=== PATIENT | male | born 1950 | race Two or more races ===

== ENCOUNTER 2018-05-22 16:48 | Emergency (ER) | payer OTHER ==
[~2018-05-22] VITALS: Ht 177.8 cm; Wt 90.0 kg
[2018-05-22 17:25] LABS: BASOPHILS % (AUTO) 0.2 % (0-1); EOSINOPHILS # (AUTO) 0.1 X10'3 (0-0.9); EOSINOPHILS % (AUTO) 1.5 % (0-6); HEMATOCRIT 28.8 % (42.0-52.0); HEMOGLOBIN 9.8 g/dl (14.0-17.9); LYMPHOCYTES # (AUTO) 1.4 X10'3 (1.1-4.8); LYMPHOCYTES % (AUTO) 14.9 % (21-51); MEAN CORPUSCULAR HEMOGLOBIN 27.5 PG (27.0-31.0); MEAN PLATELET VOLUME 7.3 FL (7.4-10.4); MONOCYTES # (AUTO) 0.5 X10'3 (0-0.9); MONOCYTES % (AUTO) 5.6 % (2-12); NEUTROPHILS # (AUTO) 7.3 X10'3 (1.8-7.7); NEUTROPHILS % (AUTO) 77.8 % (42-75); PLATELET COUNT 350 X10'3 (140-440); RED BLOOD COUNT 3.55 X10'6 (4.70-6.10); RED CELL DISTRIBUTION WIDTH 13.8 % (11.5-14.5); WHITE BLOOD COUNT 9.4 X10'3 (4.5-11.0)
[2018-05-22 17:37] LABS: ALANINE AMINOTRANSFERASE 26 U/L (12-78); ALBUMIN 3.6 G/DL (3.4-5.0); ALBUMIN/GLOBULIN RATIO 1.1 (1.1-1.5); ALKALINE PHOSPHATASE 91 IU/L (46-116); ANION GAP 12 (8-16); ASPARTATE AMINO TRANSFERASE 19 U/L (10-37); BILIRUBIN,TOTAL 0.4 MG/DL (0.1-1.0); BLOOD UREA NITROGEN 26 MG/DL (7-18); BUN/CREATININE RATIO 32.9 (5.4-32.0); CALCIUM 8.7 MG/DL (8.5-10.1); CHLORIDE 105 MMOL/L (99-107); CREATININE 0.79 MG/DL (0.60-1.10); GLUCOSE 116 MG/DL (70-104); POTASSIUM 3.9 MMOL/L (3.5-5.1); SODIUM 144 MMOL/L (135-145); eGFR > 90 ML/MIN
[2018-05-22 18:25] VITALS: BP 142/57
[2018-05-22 18:27] LABS: COLOR,URINE YELLOW (Yellow); GLUCOSE, URINE NEGATIVE (Neg); KETONES,URINE TRACE mg/dl (Neg); LEUKOCYTE ESTERASE ,URINE NEGATIVE (Neg); NITRITES, URINE NEGATIVE (Neg); OCCULT BLOOD,URINE SMALL (Neg); PH,URINE 5.5 (4.8-8.0); PROTEIN,URINE TRACE mg/dl (Neg); UROBILINOGEN,URINE 0.2 E.U/dL (0.2-1.0)
[2018-05-22 18:45] LABS: UA COLLECTION TYPE CLN CATCH MIDSTREAM
[2018-05-22 18:46] LABS: CLARITY,URINE SLIGHTLY CLOUDY (Clear); WBC,URINE 0-4 /HPF (0-4)
[2018-05-22 18:47] LABS: BACTERIA,URINE NONE SEEN /HPF (Neg); CAL OXALATE CRYSTALS 3+ /HPF (NEGATIVE); RBC,URINE 0-2 /HPF (0-2); SQUAMOUS EPITHELIAL CELL,UR FEW /LPF (FEW)
== END 2018-05-22 18:26 | disposition home or self-care (01) ==
LOC: ER 16:49
DX: R60.9 Edema, unspecified (principal); I50.9 Heart failure, unspecified
CPT/HCPCS: 36415; 71045; 80053; 81001; 83880; 85025; 93005; 99285

== ENCOUNTER 2018-06-15 16:18 | Emergency (ER) | payer MEDICARE, OTHER ==
[~2018-06-15] VITALS: Ht 604 cm; Wt 97.5 kg
[2018-06-15 18:29] LABS: BASOPHILS % (AUTO) 0.1 % (0-1); EOSINOPHILS # (AUTO) 0.2 X10'3 (0-0.9); EOSINOPHILS % (AUTO) 2.1 % (0-6); HEMATOCRIT 24.8 % (42.0-52.0); HEMOGLOBIN 8.2 g/dl (14.0-17.9); LYMPHOCYTES # (AUTO) 1.6 X10'3 (1.1-4.8); LYMPHOCYTES % (AUTO) 15.8 % (21-51); MEAN CORPUSCULAR HEMOGLOBIN 25.3 PG (27.0-31.0); MEAN CORPUSCULAR VOLUME 76.9 FL (78-98); MEAN PLATELET VOLUME 6.6 FL (7.4-10.4); MONOCYTES % (AUTO) 10.2 % (2-12); NEUTROPHILS # (AUTO) 7.2 X10'3 (1.8-7.7); NEUTROPHILS % (AUTO) 71.8 % (42-75); PLATELET COUNT 281 X10'3 (140-440); RED BLOOD COUNT 3.23 X10'6 (4.70-6.10); RED CELL DISTRIBUTION WIDTH 15.1 % (11.5-14.5); WHITE BLOOD COUNT 10.1 X10'3 (4.5-11.0)
[2018-06-15 18:41] LABS: INR 1.2 INR; PARTIAL THROMBOPLASTIN TIME 25 SECONDS (22-32); PROTHROMBIN TIME 12.6 SECONDS (9.0-12.0)
[2018-06-15 18:45] LABS: ALANINE AMINOTRANSFERASE 42 U/L (12-78); ALBUMIN 3.3 G/DL (3.4-5.0); ALBUMIN/GLOBULIN RATIO 1.1 (1.1-1.5); ALKALINE PHOSPHATASE 78 IU/L (46-116); ANION GAP 8 (8-16); ASPARTATE AMINO TRANSFERASE 23 U/L (10-37); BILIRUBIN,TOTAL 0.6 MG/DL (0.1-1.0); BLOOD UREA NITROGEN 26 MG/DL (7-18); BUN/CREATININE RATIO 23.6 (5.4-32.0); CALCIUM 8.1 MG/DL (8.5-10.1); CHLORIDE 102 MMOL/L (99-107); GLUCOSE 174 MG/DL (70-104); POTASSIUM 3.3 MMOL/L (3.5-5.1); SODIUM 138 MMOL/L (135-145); TOTAL CARBON DIOXIDE 27.8 MMOL/L (24-32); TOTAL PROTEIN 6.3 G/DL (6.4-8.2); eGFR 66 ML/MIN
[2018-06-15 18:51] LABS: MAGNESIUM 1.6 MG/DL (1.5-2.4)
[2018-06-15 19:31] LABS: CLARITY,URINE CLEAR (Clear); COLOR,URINE YELLOW (Yellow); GLUCOSE, URINE NEGATIVE (Neg); KETONES,URINE NEGATIVE (Neg); LEUKOCYTE ESTERASE ,URINE NEGATIVE (Neg); NITRITES, URINE NEGATIVE (Neg); OCCULT BLOOD,URINE NEGATIVE (Neg); PROTEIN,URINE TRACE mg/dl (Neg); UA COLLECTION TYPE VOIDED
[2018-06-15 19:49] LABS: BACTERIA,URINE NONE SEEN /HPF (Neg); HYALINE CASTS 0-3 /LPF (NEGATIVE); MUCUS STRANDS NONE SEEN /LPF (Neg); RBC,URINE NONE SEEN /HPF (0-2); SQUAMOUS EPITHELIAL CELL,UR FEW /LPF (FEW); WBC,URINE 0-4 /HPF (0-4)
[2018-06-15] MEDS ORDERED: furosemide 20MG tablet PO ONE (20:05)
[2018-06-15] MEDS ORDERED: FURO-150 PO (20:05)
[2018-06-15] MEDS ORDERED: POTA10TA36 PO (20:06)
[2018-06-15 20:23] VITALS: BP 171/72
== END 2018-06-15 20:25 | disposition home or self-care (01) ==
LOC: ER 16:19
DX: I11.0 Hypertensive heart disease with heart failure (principal); I50.30 Unspecified diastolic (congestive) heart failure; I38 Endocarditis, valve unspecified; D64.9 Anemia, unspecified; E78.00 Pure hypercholesterolemia, unspecified; K21.9 Gastro-esophageal reflux disease without esophagitis; E11.9 Type 2 diabetes mellitus without complications; Z95.1 Presence of aortocoronary bypass graft; Z79.899 Other long term (current) drug therapy
CPT/HCPCS: 36415; 71045; 80053; 81001; 83735; 83880; 84484; 85025; 85610; 85730; 93005; 99285

== ENCOUNTER 2018-10-01 16:33 | Inpatient (IN) | payer MEDICARE, OTHER ==
[~2018-10-01] VITALS: Ht 177.8 cm; Wt 93.0 kg
[~2018-10-01 16:33] MED LIST: FURO-150 PO; POTA10TA36 PO
[2018-10-01 17:17] LABS: BASOPHILS # (AUTO) 0.1 X10'3 (0-0.2); BASOPHILS % (AUTO) 0.5 % (0-1); EOSINOPHILS # (AUTO) 0.4 X10'3 (0-0.9); EOSINOPHILS % (AUTO) 3.6 % (0-6); HEMATOCRIT 29.4 % (42.0-52.0); HEMOGLOBIN 9.1 g/dl (14.0-17.9); LYMPHOCYTES # (AUTO) 1.7 X10'3 (1.1-4.8); LYMPHOCYTES % (AUTO) 16.6 % (21-51); MEAN CORPUSCULAR HEMOGLOBIN 21.1 PG (27.0-31.0); MEAN CORPUSCULAR HGB CONC 31.1 % (33.0-36.5); MONOCYTES # (AUTO) 0.6 X10'3 (0-0.9); MONOCYTES % (AUTO) 6.3 % (2-12); NEUTROPHILS # (AUTO) 7.4 X10'3 (1.8-7.7); PLATELET COUNT 484 X10'3 (140-440); RED BLOOD COUNT 4.32 X10'6 (4.70-6.10); RED CELL DISTRIBUTION WIDTH 18.3 % (11.5-14.5); WHITE BLOOD COUNT 10.2 X10'3 (4.5-11.0)
[2018-10-01 17:33] LABS: ANISOCYTOSIS 2+; PLATELET ESTIMATE INCREASED; POIKILOCYTOSIS 2+
[2018-10-01 17:36] LABS: ACANTHOCYTES 1+; ELLIPTOCYTES 2+
[2018-10-01 17:37] LABS: POLYCHROMASIA 1+
[2018-10-01 17:39] LABS: ALANINE AMINOTRANSFERASE 46 U/L (12-78); ALBUMIN 4.1 G/DL (3.4-5.0); ALBUMIN/GLOBULIN RATIO 1.1 (1.1-1.5); ALKALINE PHOSPHATASE 108 IU/L (46-116); ANION GAP 10 (8-16); ASPARTATE AMINO TRANSFERASE 26 U/L (10-37); BILIRUBIN,TOTAL 0.3 MG/DL (0.1-1.0); BLOOD UREA NITROGEN 33 MG/DL (7-18); BUN/CREATININE RATIO 35.1 (5.4-32.0); CALCIUM 9.4 MG/DL (8.5-10.1); CHLORIDE 103 MMOL/L (99-107); CREATININE 0.94 MG/DL (0.60-1.10); GLUCOSE 93 MG/DL (70-104); POTASSIUM 3.7 MMOL/L (3.5-5.1); SODIUM 139 MMOL/L (135-145); TOTAL CARBON DIOXIDE 26.4 MMOL/L (24-32); TOTAL PROTEIN 7.7 G/DL (6.4-8.2); eGFR 80 ML/MIN
[2018-10-01 17:43] LABS: INR 1.1 INR; PARTIAL THROMBOPLASTIN TIME 25 SECONDS (22-32); PROTHROMBIN TIME 10.7 SECONDS (9.0-12.0)
[2018-10-01 18:02] LABS: HYPOCHROMASIA 1+
[2018-10-01 18:03] LABS: TEAR DROP CELLS FEW
[2018-10-01] MEDS ORDERED: normal saline 1000ML IV soln IVB ONE (18:50)
[2018-10-01] MEDS ORDERED: aspirin 81mg tab.chew PO ONE (19:00)
[2018-10-01] MEDS ORDERED: nitroGLYCERIN 0.4mg SUBLingual tab SL PRN (19:00)
[2018-10-01] MEDS ORDERED: FLUO20CA39 PO (20:43)
[2018-10-01] MEDS ORDERED: METF500T PO (20:59)
[2018-10-01] MEDS ORDERED: LISI40TA4 PO (20:59)
[2018-10-01] MEDS ORDERED: CARV25TA3 (20:59)
[2018-10-01] MEDS ORDERED: ATOR40TA PO (20:59)
[2018-10-01] MEDS ORDERED: FEXO180T94 PO (20:59)
[2018-10-01] MEDS ORDERED: OMEP20CA10 PO (20:59)
[2018-10-01] MEDS ORDERED: ASPI-920 PO (20:59)
[2018-10-01] MEDS ORDERED: AMLO5TAB PO (20:59)
[2018-10-01] MEDS ORDERED: HYDR12.55 PO (20:59)
[2018-10-01] MEDS ORDERED: temazepam 15mg capsule PO PRN (21:00)
[2018-10-01] MEDS ORDERED: acetaminophen 650mg rectal suppository RC PRN (21:50)
[2018-10-01] MEDS ORDERED: morphine 2 MG/ML inj. syringe IV PRN (21:50)
[2018-10-01] MEDS ORDERED: mag hydrox/Alum hydrox/simeth 30ml oral suspension PO PRN (21:50)
[2018-10-01] MEDS ORDERED: acetaminophen 325mg tablet PO PRN ×2 (21:50)
[2018-10-01] MEDS ORDERED: diphenhydrAMINE 50 mg/ml inj IV PRN (21:50)
[2018-10-01] MEDS ORDERED: diphenhydrAMINE 25mg capsule PO PRN (21:50)
[2018-10-01] MEDS ORDERED: HYDROmorphone 1 mg/ml syringe IV PRN (21:50)
[2018-10-01] MEDS ORDERED: magnesium hydroxide 30ml (MOM) UD suspension PO PRN (21:50)
[2018-10-01] MEDS ORDERED: HYDROcodone/acetaminophen 10/325mg tab PO PRN (21:50)
[2018-10-01] MEDS ORDERED: bisacodyl 10mg suppository rectal RC PRN (21:50)
[2018-10-01] MEDS ORDERED: metoclopramide 5 mg/ml inj IV PRN (21:50)
[2018-10-01] MEDS ORDERED: glucagon, human recombinant 1mg kit SUBCUT PRN (21:55)
[2018-10-01] MEDS ORDERED: MESSAGE TO PHARMACY PO ONE (21:55)
[2018-10-01] MEDS ORDERED: dextrose ORAL solution 15 GM/59 ML bottle PO PRN ×2 (21:55)
[2018-10-01] MEDS ORDERED: dextrose 50%-water 50ml dispensing syringe IV PRN ×2 (21:55)
[2018-10-01 22:15] LABS: HEMOGLOBIN A1C 7.1 % (4.5-6.2)
[2018-10-01 22:21] LABS: MAGNESIUM 1.7 MG/DL (1.5-2.4); PHOSPHORUS 3.5 MG/DL (2.3-4.5)
[2018-10-01] MEDS: normal saline 1000ml 1,000 ML IV SCH (22:37)
[2018-10-01] MEDS ORDERED: LANTUS SQ (23:01)
[2018-10-01] MEDS ORDERED: INSU100C4 SQ (23:01)
[2018-10-01 23:40] VITALS: BP 130/74
[2018-10-01] MEDS ORDERED: heparin 10,000 units/1 ML INJ IV ONE (23:45)
[2018-10-01] MEDS ORDERED: heparin 10,000 units/1 ML INJ IV PRN (23:45)
[2018-10-02] MEDS ORDERED: heparin, porcine 5000 units/ml vial SQ SCH
[2018-10-02 00:38] LABS: BASOPHILS % (AUTO) 0.4 % (0-1); EOSINOPHILS # (AUTO) 0.2 X10'3 (0-0.9); EOSINOPHILS % (AUTO) 1.6 % (0-6); HEMATOCRIT 28.1 % (42.0-52.0); HEMOGLOBIN 9.4 g/dl (14.0-17.9); LYMPHOCYTES # (AUTO) 1.7 X10'3 (1.1-4.8); LYMPHOCYTES % (AUTO) 15.9 % (21-51); MEAN CORPUSCULAR HEMOGLOBIN 22.9 PG (27.0-31.0); MEAN CORPUSCULAR HGB CONC 33.4 % (33.0-36.5); MEAN CORPUSCULAR VOLUME 68.5 FL (78-98); MEAN PLATELET VOLUME 7.2 FL (7.4-10.4); MONOCYTES # (AUTO) 0.7 X10'3 (0-0.9); MONOCYTES % (AUTO) 6.1 % (2-12); NEUTROPHILS # (AUTO) 8.3 X10'3 (1.8-7.7); PLATELET COUNT 409 X10'3 (140-440); RED CELL DISTRIBUTION WIDTH 16.6 % (11.5-14.5); WHITE BLOOD COUNT 10.9 X10'3 (4.5-11.0)
[2018-10-02 00:59] LABS: LARGE PLATELETS FEW; PLATELET ESTIMATE NORMAL
[2018-10-02 01:00] LABS: ANISOCYTOSIS 1+; ELLIPTOCYTES 2+; MICROCYTOSIS 1+; POIKILOCYTOSIS 3+
[2018-10-02 01:01] LABS: INR 1.1 INR; PARTIAL THROMBOPLASTIN TIME 28 SECONDS (22-32); PROTHROMBIN TIME 10.8 SECONDS (9.0-12.0)
[2018-10-02] MEDS: heparin 25,000 UNIT/250ml bag 250 ML IV SCH ×3 (01:29→22:18)
[2018-10-02 05:42] LABS: BASOPHILS % (AUTO) 0.2 % (0-1); EOSINOPHILS # (AUTO) 0.3 X10'3 (0-0.9); EOSINOPHILS % (AUTO) 2.7 % (0-6); HEMOGLOBIN 9.3 g/dl (14.0-17.9); LYMPHOCYTES % (AUTO) 19.9 % (21-51); MEAN CORPUSCULAR HEMOGLOBIN 21.1 PG (27.0-31.0); MEAN PLATELET VOLUME 7.7 FL (7.4-10.4); MONOCYTES # (AUTO) 0.7 X10'3 (0-0.9); NEUTROPHILS # (AUTO) 7.2 X10'3 (1.8-7.7); NEUTROPHILS % (AUTO) 70.2 % (42-75); PLATELET COUNT 453 X10'3 (140-440); RED BLOOD COUNT 4.41 X10'6 (4.70-6.10); RED CELL DISTRIBUTION WIDTH 18.1 % (11.5-14.5); WHITE BLOOD COUNT 10.3 X10'3 (4.5-11.0)
[2018-10-02 05:54] LABS: ALANINE AMINOTRANSFERASE 41 U/L (12-78); ALBUMIN 3.8 G/DL (3.4-5.0); ALBUMIN/GLOBULIN RATIO 1.1 (1.1-1.5); ALKALINE PHOSPHATASE 100 IU/L (46-116); ANION GAP 11 (8-16); ASPARTATE AMINO TRANSFERASE 29 U/L (10-37); BILIRUBIN,TOTAL 0.5 MG/DL (0.1-1.0); BLOOD UREA NITROGEN 23 MG/DL (7-18); BUN/CREATININE RATIO 31.9 (5.4-32.0); CALCIUM 9.1 MG/DL (8.5-10.1); CHLORIDE 102 MMOL/L (99-107); CREATININE 0.72 MG/DL (0.60-1.10); GLUCOSE 100 MG/DL (70-104); POTASSIUM 3.3 MMOL/L (3.5-5.1); SODIUM 139 MMOL/L (135-145); TOTAL CARBON DIOXIDE 25.6 MMOL/L (24-32); TOTAL PROTEIN 7.3 G/DL (6.4-8.2); eGFR > 90 ML/MIN
[2018-10-02 05:57] LABS: CHOL/HDL RATIO 3.9 (0.00-4.99); CHOLESTEROL 136 MG/DL (0-200); HDL CHOLESTEROL 35 MG/DL (35-60); LDL CHOLESTEROL 85 MG/DL (50-100); TRIGLYCERIDES 69 MG/DL (20-135)
[2018-10-02 06:18] LABS: ANISOCYTOSIS 2+; MICROCYTOSIS 2+; PLATELET ESTIMATE INCREASED; POIKILOCYTOSIS 2+
[2018-10-02 06:19] LABS: ELLIPTOCYTES 2+; SCHISTOCYTES 1+
[2018-10-02 06:20] LABS: BURR CELLS 1+
[2018-10-02 07:00] VITALS: BP 127/64
[2018-10-02] MEDS: pantoprazole 40mg Tablet.DR PO SCH (07:33)
[2018-10-02] MEDS: cetirizine 10mg tablet PO SCH (07:33)
[2018-10-02] MEDS: docusate sod 100mg capsule PO SCH ×2 (07:33→20:50)
[2018-10-02] MEDS: atorvastatin 20mg tablet PO SCH (07:33)
[2018-10-02] MEDS: aspirin 81mg tab.chew PO SCH (07:33)
[2018-10-02] MEDS: lisinopril 20mg tablet PO SCH (07:34)
[2018-10-02] MEDS: nitroGLYCERIN 0.2mg/hour patch TD SCH (07:34)
[2018-10-02] MEDS: FLUoxetine 20mg capsule PO SCH (07:34)
[2018-10-02] MEDS ORDERED: amLODIPine 5mg tablet PO SCH (08:00)
[2018-10-02 11:17] VITALS: BP 100/64
[2018-10-02] MEDS: ondansetron/PF 4mg/2ml inj IV PRN (11:27)
[2018-10-02 12:00] VITALS: BP 133/72
[2018-10-02] MEDS ORDERED: LORazepam 0.5 MG tablet PO PRN (12:00)
[2018-10-02] MEDS ORDERED: LORazepam 2 mg/ml vial IV ONE ×2 (12:00→12:05)
[2018-10-02] MEDS ORDERED: LORazepam 1 MG tablet PO PRN (12:05)
[2018-10-02] MEDS: insulin Lispro (HumaLOG) vial - multi-dose SQ SCH (13:27)
[2018-10-02] MEDS ORDERED: magnesium Cl slow-release 64mg tablet PO PRN (16:40)
[2018-10-02] MEDS ORDERED: magnesium 4gm in 100ml NS 100 ML IV PRN (16:40)
[2018-10-02] MEDS ORDERED: potassium Cl 20 mEq SR tablet PO PRN (16:40)
[2018-10-02] MEDS ORDERED: potassium Cl 40MEQ/NS 500ml 500 ML IV PRN ×2 (16:40)
[2018-10-02] MEDS: potassium Cl 20 mEq SR tablet PO PRN (18:20)
[2018-10-02 20:00] VITALS: BP 125/65
[2018-10-02] MEDS: sodium bicarbonate (8.4%) inj. 150 MEQ in sodium chloride 0.45% 1,000 ML IV SCH (21:05)
[2018-10-02] MEDS: acetylcysteine 200 MG/ml 4ml vial PO SCH (21:13)
[2018-10-03] VITALS (11 sets, daily range): BP systolic 118–152; BP diastolic 56–84
[2018-10-03 05:55] LABS: BASOPHILS % (AUTO) 0.5 % (0-1); EOSINOPHILS # (AUTO) 0.2 X10'3 (0-0.9); EOSINOPHILS % (AUTO) 2.7 % (0-6); HEMATOCRIT 26.7 % (42.0-52.0); HEMOGLOBIN 8.4 g/dl (14.0-17.9); LYMPHOCYTES # (AUTO) 1.7 X10'3 (1.1-4.8); LYMPHOCYTES % (AUTO) 22.1 % (21-51); MEAN CORPUSCULAR HEMOGLOBIN 21.2 PG (27.0-31.0); MEAN CORPUSCULAR HGB CONC 31.4 % (33.0-36.5); MEAN CORPUSCULAR VOLUME 67.7 FL (78-98); MONOCYTES # (AUTO) 0.7 X10'3 (0-0.9); MONOCYTES % (AUTO) 9.6 % (2-12); NEUTROPHILS # (AUTO) 4.9 X10'3 (1.8-7.7); NEUTROPHILS % (AUTO) 65.1 % (42-75); PLATELET COUNT 420 X10'3 (140-440); RED BLOOD COUNT 3.94 X10'6 (4.70-6.10); WHITE BLOOD COUNT 7.6 X10'3 (4.5-11.0)
[2018-10-03] MEDS: sodium bicarbonate (8.4%) inj. 150 MEQ in sodium chloride 0.45% 1,000 ML IV SCH ×2 (06:03→20:58)
[2018-10-03 06:21] LABS: ALBUMIN 3.4 G/DL (3.4-5.0); ANION GAP 8 (8-16); BLOOD UREA NITROGEN 18 MG/DL (7-18); BUN/CREATININE RATIO 23.4 (5.4-32.0); CALCIUM 8.7 MG/DL (8.5-10.1); CHLORIDE 105 MMOL/L (99-107); CREATININE 0.77 MG/DL (0.60-1.10); GLUCOSE 135 MG/DL (70-104); POTASSIUM 3.3 MMOL/L (3.5-5.1); SODIUM 142 MMOL/L (135-145); TOTAL CARBON DIOXIDE 28.7 MMOL/L (24-32); TROPONIN I 0.51 NG/ML (0.0-0.05); eGFR > 90 ML/MIN
[2018-10-03 06:26] LABS: ANISOCYTOSIS 2+; ELLIPTOCYTES 1+; HYPOCHROMASIA 1+; MICROCYTOSIS 2+; PLATELET ESTIMATE NORMAL
[2018-10-03 06:27] LABS: ACANTHOCYTES FEW
[2018-10-03] MEDS: pantoprazole 40mg Tablet.DR PO SCH ×2 (09:22→09:42)
[2018-10-03] MEDS: atorvastatin 20mg tablet PO SCH (09:23)
[2018-10-03] MEDS: FLUoxetine 20mg capsule PO SCH (09:23)
[2018-10-03] MEDS: lisinopril 20mg tablet PO SCH (09:24)
[2018-10-03] MEDS: aspirin 81mg tab.chew PO SCH (09:24)
[2018-10-03] MEDS: cetirizine 10mg tablet PO SCH (09:24)
[2018-10-03] MEDS: docusate sod 100mg capsule PO SCH ×2 (09:25→20:57)
[2018-10-03] MEDS: acetylcysteine 200 MG/ml 4ml vial PO SCH ×2 (09:26→20:58)
[2018-10-03] MEDS: nitroGLYCERIN 0.2mg/hour patch TD SCH (10:12)
[2018-10-03] MEDS: insulin Lispro (HumaLOG) vial - multi-dose SQ SCH ×2 (11:08→19:31)
[2018-10-03] MEDS ORDERED: heparin 1,000unit/ml 10ml vial 10 ML ONE (13:35)
[2018-10-03] MEDS ORDERED: nitroGLYCERIN-Tridil 50MG/D5W 250 ML IV ONE (13:35)
[2018-10-03] MEDS ORDERED: fentaNYL/PF 50MCG/1 ML 2ML syringe ONE (13:35)
[2018-10-03] MEDS ORDERED: iohexol 350 MG/ML 50ML vial IV ONE (13:35)
[2018-10-03] MEDS ORDERED: midazolam 2 mg/2 ml injection ONE (13:35)
[2018-10-03] MEDS ORDERED: LIDOcaine 1% 30ml preserv. free vial ONE (13:35)
[2018-10-03] MEDS ORDERED: iohexol 350MG/ML 100ml bottle IV ONE ×2 (13:35→14:24)
[2018-10-03] MEDS: potassium Cl 20 mEq SR tablet PO PRN (13:57)
[2018-10-03] MEDS: metoprolol tartrate 25mg tablet PO SCH (20:57)
[2018-10-03] MEDS: normal saline 1000ml 1,000 ML IV SCH (21:47)
[2018-10-04] VITALS: BP 100/55
[2018-10-04] MEDS: ondansetron/PF 4mg/2ml inj IV PRN (02:13)
[2018-10-04] MEDS: normal saline 1000ml 1,000 ML IV SCH (05:31)
[2018-10-04] MEDS: sodium bicarbonate (8.4%) inj. 150 MEQ in sodium chloride 0.45% 1,000 ML IV SCH (05:35)
[2018-10-04 05:59] LABS: BASOPHILS % (AUTO) 0.4 % (0-1); EOSINOPHILS # (AUTO) 0.2 X10'3 (0-0.9); EOSINOPHILS % (AUTO) 2.5 % (0-6); HEMATOCRIT 26.3 % (42.0-52.0); HEMOGLOBIN 8.2 g/dl (14.0-17.9); LYMPHOCYTES # (AUTO) 0.8 X10'3 (1.1-4.8); LYMPHOCYTES % (AUTO) 9.9 % (21-51); MEAN CORPUSCULAR HEMOGLOBIN 21.2 PG (27.0-31.0); MEAN CORPUSCULAR HGB CONC 31.3 % (33.0-36.5); MEAN CORPUSCULAR VOLUME 67.7 FL (78-98); MEAN PLATELET VOLUME 7.7 FL (7.4-10.4); MONOCYTES # (AUTO) 0.7 X10'3 (0-0.9); MONOCYTES % (AUTO) 7.6 % (2-12); NEUTROPHILS # (AUTO) 6.8 X10'3 (1.8-7.7); NEUTROPHILS % (AUTO) 79.6 % (42-75); PLATELET COUNT 399 X10'3 (140-440); RED BLOOD COUNT 3.88 X10'6 (4.70-6.10); RED CELL DISTRIBUTION WIDTH 18.1 % (11.5-14.5); WHITE BLOOD COUNT 8.6 X10'3 (4.5-11.0)
[2018-10-04 06:40] LABS: ALANINE AMINOTRANSFERASE 37 U/L (12-78); ALBUMIN 3.5 G/DL (3.4-5.0); ALBUMIN/GLOBULIN RATIO 1.1 (1.1-1.5); ALKALINE PHOSPHATASE 94 IU/L (46-116); ANION GAP 9 (8-16); ASPARTATE AMINO TRANSFERASE 28 U/L (10-37); BILIRUBIN,TOTAL 0.4 MG/DL (0.1-1.0); BLOOD UREA NITROGEN 16 MG/DL (7-18); BUN/CREATININE RATIO 22.2 (5.4-32.0); CALCIUM 8.5 MG/DL (8.5-10.1); CHLORIDE 104 MMOL/L (99-107); CREATININE 0.72 MG/DL (0.60-1.10); GLUCOSE 160 MG/DL (70-104); POTASSIUM 3.4 MMOL/L (3.5-5.1); SODIUM 141 MMOL/L (135-145); TOTAL CARBON DIOXIDE 28.3 MMOL/L (24-32); TOTAL PROTEIN 6.7 G/DL (6.4-8.2); eGFR > 90 ML/MIN
[2018-10-04 07:00] VITALS: BP 126/62
[2018-10-04 07:13] LABS: PLATELET ESTIMATE NORMAL
[2018-10-04 07:14] LABS: ANISOCYTOSIS 2+; MICROCYTOSIS 2+
[2018-10-04 07:15] LABS: ACANTHOCYTES FEW; ELLIPTOCYTES 1+; HYPOCHROMASIA 1+; POIKILOCYTOSIS 1+; POLYCHROMASIA FEW; SCHISTOCYTES 1+
[2018-10-04] MEDS ORDERED: atorvastatin 20mg tablet PO SCH (08:00)
[2018-10-04] MEDS ORDERED: cetirizine 10mg tablet PO PRN (08:00)
[2018-10-04] MEDS: nitroGLYCERIN 0.2mg/hour patch TD SCH (08:15)
[2018-10-04] MEDS: FLUoxetine 20mg capsule PO SCH (08:16)
[2018-10-04] MEDS: pantoprazole 40mg Tablet.DR PO SCH (08:16)
[2018-10-04] MEDS: lisinopril 20mg tablet PO SCH (08:16)
[2018-10-04] MEDS: metoprolol tartrate 25mg tablet PO SCH (08:16)
[2018-10-04] MEDS: docusate sod 100mg capsule PO SCH (08:17)
[2018-10-04] MEDS: aspirin 81mg tab.chew PO SCH (08:17)
[2018-10-04] MEDS: acetylcysteine 200 MG/ml 4ml vial PO SCH (08:17)
[2018-10-04] MEDS: potassium Cl 20 mEq SR tablet PO PRN ×2 (08:20→13:34)
[2018-10-04] MEDS: insulin Lispro (HumaLOG) vial - multi-dose SQ SCH ×2 (10:04→13:33)
[2018-10-04 11:00] VITALS: BP 115/58
[2018-10-04] MEDS ORDERED: ISOS30TA6 PO (12:29)
[2018-10-04] MEDS ORDERED: ATOR20TA66 PO (12:29)
[2018-10-04] MEDS ORDERED: CLON-528 PO (12:29)
[2018-10-04] MEDS ORDERED: METO25TA6 PO (12:29)
[2018-10-05] MEDS ORDERED: isosorbide mononitrate 30mg tab.SR.24H PO SCH (08:00)
== END 2018-10-04 14:29 | disposition home or self-care (01) | DRG 281 ==
LOC: ER 16:34 → ED HOLD 21:47 → SUR 3N 23:30
PROVIDERS: ADMIT Family Medicine; ATTEND Family Medicine
PROC: 4A023N7 Measurement of Cardiac Sampling and Pressure, Left Heart, Percutaneous Approach (ICD-10-PCS; principal; 2018-10-03)
PROC: B2111ZZ Fluoroscopy of Multiple Coronary Arteries using Low Osmolar Contrast (ICD-10-PCS; 2018-10-03)
PROC: B2151ZZ Fluoroscopy of Left Heart using Low Osmolar Contrast (ICD-10-PCS; 2018-10-03)
PROC: B3101ZZ Fluoroscopy of Thoracic Aorta using Low Osmolar Contrast (ICD-10-PCS; 2018-10-03)
PROC: B2131ZZ Fluoroscopy of Multiple Coronary Artery Bypass Grafts using Low Osmolar Contrast (ICD-10-PCS; 2018-10-03)
PROC: B2181ZZ Fluoroscopy of Left Internal Mammary Bypass Graft using Low Osmolar Contrast (ICD-10-PCS; 2018-10-03)
PROC: 3E02340 Introduction of Influenza Vaccine into Muscle, Percutaneous Approach (ICD-10-PCS; 2018-10-04)
DX: I21.4 Non-ST elevation (NSTEMI) myocardial infarction (principal); I50.32 Chronic diastolic (congestive) heart failure; I11.0 Hypertensive heart disease with heart failure; D64.9 Anemia, unspecified; M54.9 Dorsalgia, unspecified; E11.65 Type 2 diabetes mellitus with hyperglycemia; E78.00 Pure hypercholesterolemia, unspecified; M48.00 Spinal stenosis, site unspecified; E78.5 Hyperlipidemia, unspecified; F32.9 Major depressive disorder, single episode, unspecified; F41.9 Anxiety disorder, unspecified; G89.29 Other chronic pain; I25.10 Atherosclerotic heart disease of native coronary artery without angina pectoris; I45.10 Unspecified right bundle-branch block; K21.9 Gastro-esophageal reflux disease without esophagitis; Z95.1 Presence of aortocoronary bypass graft; Z98.61 Coronary angioplasty status; Z23 Encounter for immunization; Z79.82 Long term (current) use of aspirin; Z79.899 Other long term (current) drug therapy; Z79.4 Long term (current) use of insulin; Z85.89 Personal history of malignant neoplasm of other organs and systems
CPT/HCPCS: 36415; 71045; 80048; 80053; 80061; 82948; 83036; 83735; 83880; 84100; 84443; 84484; 85025; 85610; 85730; 87070; 93005; 93306; 93459; 96360; 99152; 99153; 99285; A4620; A6257; C1760; C1769; G0378; J1170; J1644; J2060; J2250; J2405; J2765; J3010; J3490; J7030; Q9967

== ENCOUNTER 2018-10-23 15:12 | Emergency (ER) | payer MEDICARE, OTHER ==
[~2018-10-23] VITALS: Ht 177.8 cm; Wt 79.0 kg
[~2018-10-23 15:12] MED LIST changes: +ASPI-920 PO; +ATOR20TA66 PO; +ATOR40TA PO; +CLON-528 PO; +FEXO180T94 PO; +FLUO20CA39 PO; -FURO-150 PO; +INSU100C4 SQ; +ISOS30TA6 PO; +LANTUS SQ; +LISI40TA4 PO; +METO25TA6 PO; +OMEP20CA10 PO; -POTA10TA36 PO
[2018-10-23] MEDS ORDERED: LORazepam 1 MG tablet PO ONE (15:45)
[2018-10-23 15:57] LABS: HEMATOCRIT 27.7 % (42.0-52.0); MEAN CORPUSCULAR HEMOGLOBIN 21.6 PG (27.0-31.0); MEAN CORPUSCULAR HGB CONC 32.6 % (33.0-36.5); MEAN CORPUSCULAR VOLUME 66.3 FL (78-98); MEAN PLATELET VOLUME 7.6 FL (7.4-10.4); PLATELET COUNT 295 X10'3 (140-440); RED BLOOD COUNT 4.17 X10'6 (4.70-6.10); RED CELL DISTRIBUTION WIDTH 16.9 % (11.5-14.5); WHITE BLOOD COUNT 7.7 X10'3 (4.5-11.0)
[2018-10-23 15:58] LABS: BASOPHILS % (AUTO) 0.4 % (0-1); EOSINOPHILS % (AUTO) 0.2 % (0-6); LYMPHOCYTES # (AUTO) 1.2 X10'3 (1.1-4.8); LYMPHOCYTES % (AUTO) 16 % (21-51); MONOCYTES # (AUTO) 0.7 X10'3 (0-0.9); MONOCYTES % (AUTO) 9.3 % (2-12); NEUTROPHILS # (AUTO) 5.8 X10'3 (1.8-7.7); NEUTROPHILS % (AUTO) 74.1 % (42-75)
[2018-10-23 16:01] LABS: ALANINE AMINOTRANSFERASE 29 U/L (12-78); ALBUMIN/GLOBULIN RATIO 1.2 (1.1-1.5); ALKALINE PHOSPHATASE 103 IU/L (46-116); ANION GAP 19 (8-16); ASPARTATE AMINO TRANSFERASE 19 U/L (10-37); BILIRUBIN,TOTAL 0.9 MG/DL (0.1-1.0); BLOOD UREA NITROGEN 18 MG/DL (7-18); BUN/CREATININE RATIO 19.8 (5.4-32.0); CALCIUM 9.3 MG/DL (8.5-10.1); CHLORIDE 101 MMOL/L (99-107); CREATININE 0.91 MG/DL (0.60-1.10); GLUCOSE 126 MG/DL (70-104); POTASSIUM 3.2 MMOL/L (3.5-5.1); SODIUM 139 MMOL/L (135-145); TOTAL CARBON DIOXIDE 19.4 MMOL/L (24-32); TOTAL PROTEIN 7.4 G/DL (6.4-8.2); eGFR 83 ML/MIN
[2018-10-23 16:05] LABS: INR 1.2 INR; PARTIAL THROMBOPLASTIN TIME 25 SECONDS (22-32); PROTHROMBIN TIME 12.2 SECONDS (9.0-12.0)
[2018-10-23 16:21] LABS: LARGE PLATELETS FEW; PLATELET ESTIMATE NORMAL
[2018-10-23 16:22] LABS: ANISOCYTOSIS 1+; ELLIPTOCYTES 1+; MICROCYTOSIS 2+; POIKILOCYTOSIS 1+; SCHISTOCYTES 1+
[2018-10-23 16:23] LABS: TEAR DROP CELLS 1+
[2018-10-23 16:24] LABS: BURR CELLS 1+; POLYCHROMASIA 1+
[2018-10-23] MEDS ORDERED: iohexol 350MG/ML 100ml bottle IV ONE (17:20)
[2018-10-23] MEDS ORDERED: MESSAGE TO NURSING PO NR (18:30)
[2018-10-23] MEDS ORDERED: LORA1TAB PO (19:47)
[2018-10-23 19:59] VITALS: BP 138/57
== END 2018-10-23 20:01 | disposition home or self-care (01) ==
LOC: ER 15:12
DX: F41.9 Anxiety disorder, unspecified (principal); I25.10 Atherosclerotic heart disease of native coronary artery without angina pectoris; I11.0 Hypertensive heart disease with heart failure; I50.9 Heart failure, unspecified; E78.00 Pure hypercholesterolemia, unspecified; K21.9 Gastro-esophageal reflux disease without esophagitis; E11.9 Type 2 diabetes mellitus without complications; G89.29 Other chronic pain; Z95.1 Presence of aortocoronary bypass graft; Z95.5 Presence of coronary angioplasty implant and graft; Z79.899 Other long term (current) drug therapy; Z79.4 Long term (current) use of insulin; Z79.82 Long term (current) use of aspirin
CPT/HCPCS: 36415; 71045; 71275; 80053; 83880; 84484; 85025; 85379; 85610; 85730; 93005; 99284; Q9967

== ENCOUNTER 2018-10-24 17:17 | Emergency (ER) | payer MEDICARE, OTHER ==
[~2018-10-24] VITALS: Ht 177.8 cm; Wt 89.0 kg
[~2018-10-24 17:17] MED LIST changes: +LORA1TAB PO
[2018-10-24 18:15] LABS: BASOPHILS # (AUTO) 0.1 X10'3 (0-0.2); BASOPHILS % (AUTO) 0.9 % (0-1); EOSINOPHILS # (AUTO) 0.2 X10'3 (0-0.9); EOSINOPHILS % (AUTO) 2.4 % (0-6); HEMATOCRIT 27.5 % (42.0-52.0); HEMOGLOBIN 8.4 g/dl (14.0-17.9); LYMPHOCYTES # (AUTO) 1.3 X10'3 (1.1-4.8); LYMPHOCYTES % (AUTO) 19.6 % (21-51); MEAN CORPUSCULAR HEMOGLOBIN 20.1 PG (27.0-31.0); MEAN CORPUSCULAR HGB CONC 30.4 % (33.0-36.5); MEAN CORPUSCULAR VOLUME 65.9 FL (78-98); MEAN PLATELET VOLUME 7.7 FL (7.4-10.4); MONOCYTES # (AUTO) 0.7 X10'3 (0-0.9); MONOCYTES % (AUTO) 10.7 % (2-12); NEUTROPHILS # (AUTO) 4.4 X10'3 (1.8-7.7); NEUTROPHILS % (AUTO) 66.4 % (42-75); PLATELET COUNT 319 X10'3 (140-440); RED BLOOD COUNT 4.17 X10'6 (4.70-6.10); RED CELL DISTRIBUTION WIDTH 17.9 % (11.5-14.5); WHITE BLOOD COUNT 6.6 X10'3 (4.5-11.0)
[2018-10-24 18:26] LABS: ALANINE AMINOTRANSFERASE 34 U/L (12-78); ALBUMIN 3.8 G/DL (3.4-5.0); ALBUMIN/GLOBULIN RATIO 1.2 (1.1-1.5); ALKALINE PHOSPHATASE 98 IU/L (46-116); ANION GAP 14 (8-16); ASPARTATE AMINO TRANSFERASE 28 U/L (10-37); BILIRUBIN,TOTAL 0.5 MG/DL (0.1-1.0); BLOOD UREA NITROGEN 27 MG/DL (7-18); CALCIUM 9.1 MG/DL (8.5-10.1); CHLORIDE 102 MMOL/L (99-107); CREATININE 1.04 MG/DL (0.60-1.10); GLUCOSE 187 MG/DL (70-104); INR 1.2 INR; PARTIAL THROMBOPLASTIN TIME 24 SECONDS (22-32); POTASSIUM 3.1 MMOL/L (3.5-5.1); SODIUM 140 MMOL/L (135-145); TOTAL CARBON DIOXIDE 23.6 MMOL/L (24-32); TOTAL PROTEIN 7.1 G/DL (6.4-8.2); eGFR 71 ML/MIN
[2018-10-24] MEDS ORDERED: potassium Cl 20 mEq SR tablet PO ONE (18:40)
[2018-10-24] MEDS ORDERED: LORazepam 0.5 MG tablet PO PRN (19:35)
[2018-10-24 19:47] VITALS: BP 136/64
[2018-10-24 20:07] LABS: ANISOCYTOSIS 2+; PLATELET ESTIMATE NORMAL
[2018-10-24 20:09] LABS: ACANTHOCYTES 2+; BURR CELLS 2+; ELLIPTOCYTES 2+; MICROCYTOSIS 2+; POIKILOCYTOSIS 3+; POLYCHROMASIA 1+; SCHISTOCYTES 1+; TARGET CELLS 1+; TEAR DROP CELLS 1+
== END 2018-10-24 19:49 | disposition home or self-care (01) ==
LOC: ER 17:18
DX: R07.89 Other chest pain (principal); R00.2 Palpitations; R06.02 Shortness of breath; I25.10 Atherosclerotic heart disease of native coronary artery without angina pectoris; I11.0 Hypertensive heart disease with heart failure; I50.9 Heart failure, unspecified; E78.00 Pure hypercholesterolemia, unspecified; K21.9 Gastro-esophageal reflux disease without esophagitis; E11.9 Type 2 diabetes mellitus without complications; G89.29 Other chronic pain; Z98.61 Coronary angioplasty status; Z79.82 Long term (current) use of aspirin; Z79.4 Long term (current) use of insulin; Z79.899 Other long term (current) drug therapy
CPT/HCPCS: 36415; 71045; 80053; 84484; 85025; 85610; 85730; 93005; 99284

== ENCOUNTER 2018-11-24 20:13 | Emergency (ER) | payer MEDICARE, OTHER ==
[~2018-11-24] VITALS: Ht 177.8 cm; Wt 81.0 kg
[2018-11-24 20:59] LABS: BASOPHILS % (AUTO) 0.4 % (0-1); EOSINOPHILS # (AUTO) 0.2 X10'3 (0-0.9); EOSINOPHILS % (AUTO) 2.2 % (0-6); HEMATOCRIT 25.1 % (42.0-52.0); HEMOGLOBIN 7.5 g/dl (14.0-17.9); LYMPHOCYTES # (AUTO) 1.2 X10'3 (1.1-4.8); LYMPHOCYTES % (AUTO) 12.6 % (21-51); MEAN CORPUSCULAR HEMOGLOBIN 20.1 PG (27.0-31.0); MEAN CORPUSCULAR HGB CONC 29.9 % (33.0-36.5); MEAN CORPUSCULAR VOLUME 67.1 FL (78-98); MEAN PLATELET VOLUME 7.7 FL (7.4-10.4); MONOCYTES # (AUTO) 0.8 X10'3 (0-0.9); NEUTROPHILS # (AUTO) 7.3 X10'3 (1.8-7.7); NEUTROPHILS % (AUTO) 76.8 % (42-75); PLATELET COUNT 267 X10'3 (140-440); RED BLOOD COUNT 3.73 X10'6 (4.70-6.10); RED CELL DISTRIBUTION WIDTH 17.4 % (11.5-14.5); WHITE BLOOD COUNT 9.5 X10'3 (4.5-11.0)
[2018-11-24 21:02] LABS: PROTHROMBIN TIME 11.2 SECONDS (9.0-12.0)
[2018-11-24 21:03] LABS: INR 1.1 INR; PARTIAL THROMBOPLASTIN TIME 26 SECONDS (22-32)
[2018-11-24 21:07] LABS: ALANINE AMINOTRANSFERASE 29 U/L (12-78); ALBUMIN 3.5 G/DL (3.4-5.0); ALBUMIN/GLOBULIN RATIO 1.1 (1.1-1.5); ALKALINE PHOSPHATASE 111 IU/L (46-116); ANION GAP 12 (8-16); ASPARTATE AMINO TRANSFERASE 23 U/L (10-37); BILIRUBIN,TOTAL 0.4 MG/DL (0.1-1.0); BLOOD UREA NITROGEN 21 MG/DL (7-18); BUN/CREATININE RATIO 23.1 (5.4-32.0); CALCIUM 7.9 MG/DL (8.5-10.1); CHLORIDE 105 MMOL/L (99-107); CREATININE 0.91 MG/DL (0.60-1.10); GLUCOSE 194 MG/DL (70-104); POTASSIUM 3.7 MMOL/L (3.5-5.1); SODIUM 142 MMOL/L (135-145); TOTAL CARBON DIOXIDE 25.2 MMOL/L (24-32); TOTAL PROTEIN 6.8 G/DL (6.4-8.2); eGFR 83 ML/MIN
[2018-11-24 22:12] VITALS: BP 153/74
[2018-11-24 23:30] LABS: PLATELET ESTIMATE NORMAL
[2018-11-24 23:31] LABS: ACANTHOCYTES 1+; ANISOCYTOSIS 1+; ELLIPTOCYTES 1+; MICROCYTOSIS 1+; POLYCHROMASIA FEW; SCHISTOCYTES 1+
[2018-11-25 00:03] LABS: OCCULT BLOOD STOOL NEGATIVE (Neg)
== END 2018-11-24 23:27 | disposition home or self-care (01) ==
LOC: ER 20:13
DX: R07.89 Other chest pain (principal); D50.9 Iron deficiency anemia, unspecified; R60.0 Localized edema; R06.02 Shortness of breath; I11.0 Hypertensive heart disease with heart failure; I50.9 Heart failure, unspecified; I25.10 Atherosclerotic heart disease of native coronary artery without angina pectoris; E78.00 Pure hypercholesterolemia, unspecified; K21.9 Gastro-esophageal reflux disease without esophagitis; E11.9 Type 2 diabetes mellitus without complications; G89.29 Other chronic pain; Z98.61 Coronary angioplasty status; Z79.82 Long term (current) use of aspirin; Z79.4 Long term (current) use of insulin; Z79.899 Other long term (current) drug therapy
CPT/HCPCS: 36415; 71045; 80053; 82272; 83880; 84484; 85025; 85610; 85730; 93005; 99284

== ENCOUNTER 2018-12-06 04:00 | Inpatient (IN) | payer MEDICARE, OTHER | END 2018-12-09 15:05 | disposition home or self-care (01) | LOC: ER 04:00 → ED HOLD 05:43 → SUR 3N 07:37 | DX: I20.9 Angina pectoris, unspecified (principal); E11.9 Type 2 diabetes mellitus without complications; D64.9 Anemia, unspecified; E83.42 Hypomagnesemia; I50.9 Heart failure, unspecified ==

== ENCOUNTER 2019-01-21 17:07 | Emergency (ER) | payer MEDICARE, OTHER ==
[~2019-01-21] VITALS: Ht 177.8 cm; Wt 96.4 kg
[~2019-01-21 17:07] MED LIST changes: -ATOR40TA PO; +CLOP75TA15 PO; -FLUO20CA39 PO; -LORA1TAB PO
[2019-01-21 17:44] LABS: BASOPHILS # (AUTO) 0.1 X10'3 (0-0.2); BASOPHILS % (AUTO) 0.7 % (0-1); EOSINOPHILS # (AUTO) 0.2 X10'3 (0-0.9); EOSINOPHILS % (AUTO) 2.2 % (0-6); HEMATOCRIT 26.8 % (42.0-52.0); HEMOGLOBIN 8.4 g/dl (14.0-17.9); LYMPHOCYTES # (AUTO) 1.3 X10'3 (1.1-4.8); LYMPHOCYTES % (AUTO) 15.7 % (21-51); MEAN CORPUSCULAR HEMOGLOBIN 20.9 PG (27.0-31.0); MEAN CORPUSCULAR HGB CONC 31.3 g/dL (33.0-36.5); MEAN CORPUSCULAR VOLUME 66.8 FL (78-98); MEAN PLATELET VOLUME 7.7 FL (7.4-10.4); MONOCYTES # (AUTO) 0.7 X10'3 (0-0.9); MONOCYTES % (AUTO) 9.3 % (2-12); NEUTROPHILS # (AUTO) 5.8 X10'3 (1.8-7.7); NEUTROPHILS % (AUTO) 72.1 % (42-75); PLATELET COUNT 251 X10'3 (140-440); RED BLOOD COUNT 4.01 X10'6 (4.70-6.10); RED CELL DISTRIBUTION WIDTH 21.9 % (11.5-14.5)
[2019-01-21 18:02] LABS: ALANINE AMINOTRANSFERASE 33 U/L (12-78); ALBUMIN 3.9 G/DL (3.4-5.0); ALBUMIN/GLOBULIN RATIO 1.3 (1.1-1.5); ALKALINE PHOSPHATASE 112 IU/L (46-116); ANION GAP 9 (8-16); ASPARTATE AMINO TRANSFERASE 23 U/L (10-37); BILIRUBIN,TOTAL 0.5 MG/DL (0.1-1.0); BLOOD UREA NITROGEN 21 MG/DL (7-18); CALCIUM 8.8 MG/DL (8.5-10.1); CHLORIDE 105 MMOL/L (99-107); GLUCOSE 154 MG/DL (70-104); POTASSIUM 3.8 MMOL/L (3.5-5.1); SODIUM 140 MMOL/L (135-145); TOTAL CARBON DIOXIDE 25.7 MMOL/L (24-32); TOTAL PROTEIN 6.9 G/DL (6.4-8.2); eGFR > 90 ML/MIN
[2019-01-21 18:11] LABS: INR 1.1 INR; PARTIAL THROMBOPLASTIN TIME 28 SECONDS (22-32); PROTHROMBIN TIME 11.3 SECONDS (9.0-12.0)
[2019-01-21 18:13] LABS: PLATELET ESTIMATE NORMAL
[2019-01-21 18:14] LABS: ACANTHOCYTES FEW; ANISOCYTOSIS 3+; BURR CELLS FEW; ELLIPTOCYTES 1+; HYPOCHROMASIA 1+; MICROCYTOSIS 2+; POIKILOCYTOSIS 2+; POLYCHROMASIA 1+; SCHISTOCYTES 1+; TEAR DROP CELLS FEW
[2019-01-21 18:15] LABS: SPHEROCYTES 1+
[2019-01-21 20:29] VITALS: BP 183/91
== END 2019-01-21 21:35 | disposition home or self-care (01) ==
LOC: ER 17:08
DX: G47.00 Insomnia, unspecified (principal); D64.9 Anemia, unspecified; I11.0 Hypertensive heart disease with heart failure; I50.9 Heart failure, unspecified; I25.10 Atherosclerotic heart disease of native coronary artery without angina pectoris; E78.00 Pure hypercholesterolemia, unspecified; K21.9 Gastro-esophageal reflux disease without esophagitis; E11.9 Type 2 diabetes mellitus without complications; G89.29 Other chronic pain; M54.9 Dorsalgia, unspecified; Z95.1 Presence of aortocoronary bypass graft; Z79.82 Long term (current) use of aspirin; Z79.4 Long term (current) use of insulin
CPT/HCPCS: 36415; 71045; 80053; 84484; 85025; 85610; 85730; 93005; 99284

== ENCOUNTER 2019-01-31 18:09 | Emergency (ER) | payer MEDICARE, OTHER ==
[~2019-01-31] VITALS: Ht 180.3 cm; Wt 100.0 kg
[2019-01-31] MEDS ORDERED: aspirin 81mg tab.chew PO ONE (18:25)
[2019-01-31] MEDS ORDERED: nitroGLYCERIN 0.4mg SUBLingual tab SL PRN (18:25)
[2019-01-31 18:50] LABS: BASOPHILS % (AUTO) 0.5 % (0-1); EOSINOPHILS # (AUTO) 0.1 X10'3 (0-0.9); EOSINOPHILS % (AUTO) 1.3 % (0-6); HEMATOCRIT 28.1 % (42.0-52.0); HEMOGLOBIN 8.8 g/dl (14.0-17.9); LYMPHOCYTES # (AUTO) 0.8 X10'3 (1.1-4.8); LYMPHOCYTES % (AUTO) 8.2 % (21-51); MEAN CORPUSCULAR HEMOGLOBIN 20.5 PG (27.0-31.0); MEAN CORPUSCULAR HGB CONC 31.2 g/dL (33.0-36.5); MEAN CORPUSCULAR VOLUME 65.7 FL (78-98); MEAN PLATELET VOLUME 8.5 FL (7.4-10.4); MONOCYTES # (AUTO) 0.6 X10'3 (0-0.9); MONOCYTES % (AUTO) 6.4 % (2-12); NEUTROPHILS % (AUTO) 83.6 % (42-75); PLATELET COUNT 344 X10'3 (140-440); RED BLOOD COUNT 4.28 X10'6 (4.70-6.10); RED CELL DISTRIBUTION WIDTH 21.1 % (11.5-14.5); WHITE BLOOD COUNT 9.6 X10'3 (4.5-11.0)
[2019-01-31 19:12] LABS: ALANINE AMINOTRANSFERASE 40 U/L (12-78); ALBUMIN 4.1 G/DL (3.4-5.0); ALBUMIN/GLOBULIN RATIO 1.2 (1.1-1.5); ALKALINE PHOSPHATASE 111 IU/L (46-116); ANION GAP 9 (8-16); ASPARTATE AMINO TRANSFERASE 23 U/L (10-37); BILIRUBIN,TOTAL 0.5 MG/DL (0.1-1.0); BLOOD UREA NITROGEN 16 MG/DL (7-18); BUN/CREATININE RATIO 20.8 (5.4-32.0); CALCIUM 9.2 MG/DL (8.5-10.1); CHLORIDE 103 MMOL/L (99-107); CREATININE 0.77 MG/DL (0.60-1.10); GLUCOSE 146 MG/DL (70-104); POTASSIUM 3.7 MMOL/L (3.5-5.1); SODIUM 140 MMOL/L (135-145); TOTAL CARBON DIOXIDE 27.9 MMOL/L (24-32); TOTAL PROTEIN 7.4 G/DL (6.4-8.2); eGFR > 90 ML/MIN
[2019-01-31] MEDS ORDERED: POTA10TA19 PO (19:27)
[2019-01-31] MEDS ORDERED: FURO-150 PO (19:27)
[2019-01-31] MEDS ORDERED: NITR0.4T51 SL (19:27)
[2019-01-31] MEDS ORDERED: furosemide 10 MG/1 ML 10ml inj IV ONE (19:30)
[2019-01-31 20:27] VITALS: BP 179/93
--- NOTE | 2019-01-31 20:27 | NUR ---
EMPTIED URINAL OF 700ML OF CLEAR YELLOW URINE, PT DC'D HOME
[2019-01-31 21:51] LABS: ANISOCYTOSIS 3+; MICROCYTOSIS 2+; PLATELET ESTIMATE NORMAL; POIKILOCYTOSIS 2+
[2019-01-31 21:52] LABS: BURR CELLS 1+; ELLIPTOCYTES 1+; TARGET CELLS FEW
== END 2019-01-31 20:30 | disposition home or self-care (01) ==
LOC: ER 18:17
DX: I20.8 Other forms of angina pectoris (principal); I11.0 Hypertensive heart disease with heart failure; I50.9 Heart failure, unspecified; I25.10 Atherosclerotic heart disease of native coronary artery without angina pectoris; E78.00 Pure hypercholesterolemia, unspecified; K21.9 Gastro-esophageal reflux disease without esophagitis; E11.9 Type 2 diabetes mellitus without complications; G89.29 Other chronic pain; Z95.5 Presence of coronary angioplasty implant and graft; Z95.1 Presence of aortocoronary bypass graft; Z79.82 Long term (current) use of aspirin; Z79.4 Long term (current) use of insulin; Z79.899 Other long term (current) drug therapy
CPT/HCPCS: 36415; 71045; 80053; 83880; 84484; 85025; 93005; 96374; 99284; J1940

== ENCOUNTER 2019-02-08 17:10 | Emergency (ER) | payer MEDICARE, OTHER ==
[~2019-02-08] VITALS: Ht 177.8 cm; Wt 95.5 kg
[~2019-02-08 17:10] MED LIST changes: +FURO-150 PO; +NITR0.4T51 SL; +POTA10TA19 PO
[2019-02-08 17:49] VITALS: BP 154/65
[2019-02-08 19:08] LABS: BASOPHILS # (AUTO) 0.1 X10'3 (0-0.2); BASOPHILS % (AUTO) 0.8 % (0-1); EOSINOPHILS # (AUTO) 0.4 X10'3 (0-0.9); EOSINOPHILS % (AUTO) 4.2 % (0-6); HEMATOCRIT 27.1 % (42.0-52.0); HEMOGLOBIN 8.4 g/dl (14.0-17.9); LYMPHOCYTES # (AUTO) 1.1 X10'3 (1.1-4.8); LYMPHOCYTES % (AUTO) 13.4 % (21-51); MEAN CORPUSCULAR HEMOGLOBIN 20.1 PG (27.0-31.0); MEAN CORPUSCULAR HGB CONC 30.9 g/dL (33.0-36.5); MEAN CORPUSCULAR VOLUME 65.1 FL (78-98); MEAN PLATELET VOLUME 8.6 FL (7.4-10.4); MONOCYTES # (AUTO) 0.6 X10'3 (0-0.9); MONOCYTES % (AUTO) 7.6 % (2-12); NEUTROPHILS # (AUTO) 6.2 X10'3 (1.8-7.7); PLATELET COUNT 333 X10'3 (140-440); RED BLOOD COUNT 4.16 X10'6 (4.70-6.10); RED CELL DISTRIBUTION WIDTH 20.1 % (11.5-14.5); WHITE BLOOD COUNT 8.4 X10'3 (4.5-11.0)
[2019-02-08 19:24] LABS: INR 1.1 INR; PARTIAL THROMBOPLASTIN TIME 25 SECONDS (22-32); PROTHROMBIN TIME 10.9 SECONDS (9.0-12.0)
[2019-02-08 19:34] LABS: ALANINE AMINOTRANSFERASE 28 U/L (12-78); ALBUMIN 3.7 G/DL (3.4-5.0); ALBUMIN/GLOBULIN RATIO 1.2 (1.1-1.5); ALKALINE PHOSPHATASE 93 IU/L (46-116); ANION GAP 5 (8-16); ASPARTATE AMINO TRANSFERASE 18 U/L (10-37); BILIRUBIN,TOTAL 0.2 MG/DL (0.1-1.0); BLOOD UREA NITROGEN 19 MG/DL (7-18); CALCIUM 9.4 MG/DL (8.5-10.1); CHLORIDE 105 MMOL/L (99-107); CREATININE 0.73 MG/DL (0.60-1.10); GLUCOSE 155 MG/DL (70-104); SODIUM 140 MMOL/L (135-145); TOTAL CARBON DIOXIDE 30.1 MMOL/L (24-32); TOTAL PROTEIN 6.7 G/DL (6.4-8.2); eGFR > 90 ML/MIN
[2019-02-08 20:45] LABS: PLATELET ESTIMATE NORMAL
[2019-02-08 20:46] LABS: ANISOCYTOSIS 3+; HYPOCHROMASIA 1+; MICROCYTOSIS 2+
[2019-02-08 20:48] LABS: POIKILOCYTOSIS 1+
== END 2019-02-08 22:34 | disposition home or self-care (01) ==
LOC: ER 17:10
DX: D64.9 Anemia, unspecified (principal); I11.0 Hypertensive heart disease with heart failure; I50.9 Heart failure, unspecified; I25.10 Atherosclerotic heart disease of native coronary artery without angina pectoris; E78.00 Pure hypercholesterolemia, unspecified; K21.9 Gastro-esophageal reflux disease without esophagitis; E11.9 Type 2 diabetes mellitus without complications; G89.29 Other chronic pain; Z95.1 Presence of aortocoronary bypass graft; Z98.61 Coronary angioplasty status; Z79.82 Long term (current) use of aspirin; Z79.4 Long term (current) use of insulin; Z79.899 Other long term (current) drug therapy
CPT/HCPCS: 36415; 71045; 80053; 83880; 84484; 85025; 85610; 85730; 93005; 99284

== ENCOUNTER 2019-02-12 07:46 | Emergency (ER) | payer MEDICARE, OTHER ==
[~2019-02-12] VITALS: Ht 177.8 cm; Wt 97.7 kg
[2019-02-12] MEDS ORDERED: aspirin 81mg tab.chew PO ONE (07:50)
[2019-02-12] MEDS ORDERED: nitroGLYCERIN 0.4mg SUBLingual tab SL PRN (07:50)
[2019-02-12 08:19] LABS: BASOPHILS # (AUTO) 0.1 X10'3 (0-0.2); BASOPHILS % (AUTO) 0.8 % (0-1); EOSINOPHILS # (AUTO) 0.4 X10'3 (0-0.9); EOSINOPHILS % (AUTO) 4.3 % (0-6); HEMATOCRIT 27.5 % (42.0-52.0); HEMOGLOBIN 8.4 g/dl (14.0-17.9); LYMPHOCYTES # (AUTO) 1.1 X10'3 (1.1-4.8); LYMPHOCYTES % (AUTO) 13.1 % (21-51); MEAN CORPUSCULAR HEMOGLOBIN 19.9 PG (27.0-31.0); MEAN CORPUSCULAR HGB CONC 30.6 g/dL (33.0-36.5); MEAN PLATELET VOLUME 8.4 FL (7.4-10.4); MONOCYTES # (AUTO) 0.7 X10'3 (0-0.9); NEUTROPHILS # (AUTO) 6.3 X10'3 (1.8-7.7); NEUTROPHILS % (AUTO) 73.8 % (42-75); PLATELET COUNT 302 X10'3 (140-440); RED BLOOD COUNT 4.23 X10'6 (4.70-6.10); RED CELL DISTRIBUTION WIDTH 20.3 % (11.5-14.5); WHITE BLOOD COUNT 8.6 X10'3 (4.5-11.0)
[2019-02-12 08:22] LABS: ALANINE AMINOTRANSFERASE 31 U/L (12-78); ALBUMIN 3.8 G/DL (3.4-5.0); ALBUMIN/GLOBULIN RATIO 1.3 (1.1-1.5); ALKALINE PHOSPHATASE 118 IU/L (46-116); ANION GAP 7 (8-16); ASPARTATE AMINO TRANSFERASE 19 U/L (10-37); BILIRUBIN,TOTAL 0.3 MG/DL (0.1-1.0); BLOOD UREA NITROGEN 23 MG/DL (7-18); BUN/CREATININE RATIO 31.1 (5.4-32.0); CALCIUM 8.9 MG/DL (8.5-10.1); CHLORIDE 104 MMOL/L (99-107); CREATININE 0.74 MG/DL (0.60-1.10); GLUCOSE 133 MG/DL (70-104); POTASSIUM 3.8 MMOL/L (3.5-5.1); SODIUM 139 MMOL/L (135-145); TOTAL CARBON DIOXIDE 27.7 MMOL/L (24-32); TOTAL PROTEIN 6.8 G/DL (6.4-8.2); eGFR > 90 ML/MIN
[2019-02-12 08:29] LABS: MAGNESIUM 1.5 MG/DL (1.5-2.4)
[2019-02-12 08:53] LABS: INR 1.1 INR; PARTIAL THROMBOPLASTIN TIME 25 SECONDS (22-32); PROTHROMBIN TIME 10.7 SECONDS (9.0-12.0)
[2019-02-12 09:24] LABS: ANISOCYTOSIS 3+; MICROCYTOSIS 2+; PLATELET ESTIMATE NORMAL
[2019-02-12 09:25] LABS: ACANTHOCYTES 1+; ELLIPTOCYTES 1+; SCHISTOCYTES 1+
[2019-02-12 09:26] LABS: POIKILOCYTOSIS 2+
[2019-02-12 09:51] LABS: D-DIMER 0.55 MG/L FEU (0-0.50)
[2019-02-12 10:31] VITALS: BP 164/81
== END 2019-02-12 10:36 | disposition home or self-care (01) ==
LOC: ER 07:46
DX: R07.89 Other chest pain (principal); R61 Generalized hyperhidrosis; R11.0 Nausea; I25.10 Atherosclerotic heart disease of native coronary artery without angina pectoris; I11.0 Hypertensive heart disease with heart failure; I50.9 Heart failure, unspecified; E78.00 Pure hypercholesterolemia, unspecified; K21.9 Gastro-esophageal reflux disease without esophagitis; E11.9 Type 2 diabetes mellitus without complications; G89.29 Other chronic pain; Z98.61 Coronary angioplasty status; Z79.82 Long term (current) use of aspirin; Z79.4 Long term (current) use of insulin; Z79.899 Other long term (current) drug therapy
CPT/HCPCS: 36415; 71045; 80053; 83735; 83880; 84484; 85025; 85379; 85610; 85730; 93005; 99284

== ENCOUNTER 2019-03-13 06:41 | Day surgery (SDC) | payer MEDICARE, OTHER ==
[2019-03-13] VITALS (16 sets, daily range): BP systolic 115–148; BP diastolic 51–65
[~2019-03-13] VITALS: Ht 177.8 cm; Wt 90.2 kg
[~2019-03-13 06:41] MED LIST changes: -NITR0.4T51 SL; -POTA10TA19 PO
[2019-03-13] MEDS ORDERED: LORazepam 0.5 MG tablet PO PRN (07:00)
[2019-03-13] MEDS ORDERED: diphenhydrAMINE 25mg capsule PO PRN (07:00)
[2019-03-13] MEDS ORDERED: normal saline 1,000 ML IV SCH (07:00)
[2019-03-13 07:33] LABS: INR 1.2 INR; PARTIAL THROMBOPLASTIN TIME 28 SECONDS (22-32)
[2019-03-13] MEDS ORDERED: ATOR80TA PO (07:39)
[2019-03-13] MEDS ORDERED: FURO-150 PO (07:39)
[2019-03-13] MEDS ORDERED: METO-539 PO (07:39)
[2019-03-13] MEDS ORDERED: POTA10TA36 PO (07:39)
[2019-03-13] MEDS ORDERED: INSU100V9 SQ (07:39)
[2019-03-13] MEDS ORDERED: NOVLG SQ (07:39)
[2019-03-13] MEDS ORDERED: NITR0.4T48 SL (07:39)
[2019-03-13] MEDS ORDERED: midazolam 2 mg/2 ml injection ONE (07:46)
[2019-03-13] MEDS ORDERED: heparin 1,000unit/ml 10ml vial 10 ML ONE (07:46)
[2019-03-13] MEDS ORDERED: fentaNYL/PF 50MCG/1 ML 2ML syringe ONE (07:46)
[2019-03-13] MEDS ORDERED: iohexol 350MG/ML 100ml bottle IV ONE ×2 (07:46→08:31)
[2019-03-13] MEDS ORDERED: nitroGLYCERIN-Tridil 50MG/D5W 250 ML IV ONE (07:46)
[2019-03-13] MEDS ORDERED: iohexol 350 MG/ML 50ML vial IV ONE ×2 (07:46→08:31)
[2019-03-13] MEDS ORDERED: LIDOcaine 1% (10mg/ml)w/preservative injection 20ml MDV ONE (07:46)
== END 2019-03-13 15:05 | disposition home or self-care (01) ==
LOC: SSTAY O 06:41
PROVIDERS: ATTEND Internal Medicine Cardiovascular Disease
DX: I25.119 Atherosclerotic heart disease of native coronary artery with unspecified angina pectoris (principal); I25.82 Chronic total occlusion of coronary artery; E78.5 Hyperlipidemia, unspecified; E11.9 Type 2 diabetes mellitus without complications; I50.30 Unspecified diastolic (congestive) heart failure; I11.0 Hypertensive heart disease with heart failure; D64.9 Anemia, unspecified; Z95.1 Presence of aortocoronary bypass graft; Z87.891 Personal history of nicotine dependence
CPT/HCPCS: 36415; 82948; 85610; 85730; 93005; 93459; 99152; 99153; A6257; J1644; J2001; J2250; J3010; J7030; Q0163; Q9967; A4620; C1760; C1769; J3490

== ENCOUNTER 2019-07-25 15:27 | Emergency (ER) | payer MEDICARE, OTHER ==
[~2019-07-25] VITALS: Ht 177.8 cm; Wt 85.0 kg
[~2019-07-25 15:27] MED LIST changes: -ATOR20TA66 PO; +ATOR80TA PO; -CLON-528 PO; -INSU100C4 SQ; +INSU100V9 SQ; -ISOS30TA6 PO; -LANTUS SQ; -LISI40TA4 PO; +METO-539 PO; -METO25TA6 PO; +NITR0.4T48 SL; +NOVLG SQ; -OMEP20CA10 PO; +POTA10TA36 PO
[2019-07-25 16:43] VITALS: BP 168/69
== END 2019-07-25 16:50 | disposition home or self-care (01) ==
LOC: ER 15:28
DX: S61.211A Laceration without foreign body of left index finger without damage to nail, initial encounter (principal); I25.10 Atherosclerotic heart disease of native coronary artery without angina pectoris; I11.0 Hypertensive heart disease with heart failure; I50.9 Heart failure, unspecified; E78.00 Pure hypercholesterolemia, unspecified; K21.9 Gastro-esophageal reflux disease without esophagitis; E11.9 Type 2 diabetes mellitus without complications; G89.29 Other chronic pain; Z98.61 Coronary angioplasty status; Z95.1 Presence of aortocoronary bypass graft; Z79.82 Long term (current) use of aspirin; Z79.4 Long term (current) use of insulin; W26.8XXA Contact with other sharp object(s), not elsewhere classified, initial encounter; Y93.89 Activity, other specified; Y92.89 Other specified places as the place of occurrence of the external cause; Y99.8 Other external cause status
CPT/HCPCS: 12001; 99283

== ENCOUNTER 2021-01-30 11:46 | Emergency (ER) | payer BC, MEDICARE ==
[~2021-01-30] VITALS: Ht 177.8 cm; Wt 70.1 kg
[2021-01-30] MEDS ORDERED: normal saline 1000ML IV soln IVB ONE (14:20)
[2021-01-30 14:25] LABS: BASOPHILS % (AUTO) 0.4 % (0-1); EOSINOPHILS # (AUTO) 0.1 X10'3 (0-0.9); EOSINOPHILS % (AUTO) 0.6 % (0-6); HEMATOCRIT 38.3 % (42.0-52.0); HEMOGLOBIN 12.6 g/dl (14.0-17.9); LYMPHOCYTES # (AUTO) 1.1 X10'3 (1.1-4.8); LYMPHOCYTES % (AUTO) 12.1 % (21-51); MEAN CORPUSCULAR HEMOGLOBIN 28.2 PG (27.0-31.0); MEAN CORPUSCULAR HGB CONC 32.8 g/dL (33.0-36.5); MEAN CORPUSCULAR VOLUME 85.9 FL (78-98); MEAN PLATELET VOLUME 7.4 FL (7.4-10.4); MONOCYTES # (AUTO) 0.8 X10'3 (0-0.9); MONOCYTES % (AUTO) 9.3 % (2-12); NEUTROPHILS # (AUTO) 6.8 X10'3 (1.8-7.7); NEUTROPHILS % (AUTO) 77.6 % (42-75); PLATELET COUNT 326 X10'3 (140-440); RED BLOOD COUNT 4.46 X10'6 (4.70-6.10); RED CELL DISTRIBUTION WIDTH 14.4 % (11.5-14.5); WHITE BLOOD COUNT 8.8 X10'3 (4.5-11.0)
[2021-01-30 14:41] LABS: ALANINE AMINOTRANSFERASE 37 U/L (12-78); ALBUMIN 4.1 G/DL (3.4-5.0); ALBUMIN/GLOBULIN RATIO 1.2 (1.1-1.5); ALKALINE PHOSPHATASE 110 IU/L (46-116); ANION GAP 12 (8-16); ASPARTATE AMINO TRANSFERASE 24 U/L (10-37); BILIRUBIN,TOTAL 0.5 MG/DL (0.1-1.0); BLOOD UREA NITROGEN 32 MG/DL (7-18); BUN/CREATININE RATIO 35.6 (5.4-32.0); CALCIUM 8.8 MG/DL (8.5-10.1); CHLORIDE 106 MMOL/L (99-107); GLUCOSE 144 MG/DL (70-104); POTASSIUM 3.7 MMOL/L (3.5-5.1); SODIUM 142 MMOL/L (135-145); TOTAL CARBON DIOXIDE 24.4 MMOL/L (24-32); TOTAL PROTEIN 7.4 G/DL (6.4-8.2); eGFR 83 ML/MIN
[2021-01-30 14:47] LABS: LIPASE 98 U/L (73-393); TROPONIN I < 0.04 NG/ML (0.0-0.05)
[2021-01-30] MEDS ORDERED: iohexol 300mg/ml 100ml inj. ONE (14:47)
--- NOTE | 2021-01-30 14:56 | NUR ---
PT CANNOT PROVIDE URINE SAMPLE AT THIS TIME- WILL ATTEMPT AFTER IVF ARE ADMINISTERED
[2021-01-30] MEDS ORDERED: MESSAGE TO NURSING PO ONE (15:15)
[2021-01-30] MEDS ORDERED: ondansetron/PF 4mg/2ml inj IV ONE ×2 (15:35→17:25)
[2021-01-30] MEDS ORDERED: famotidine/PF 10 mg/ml inj IV ONE (15:35)
[2021-01-30 15:37] LABS: CLARITY,URINE CLEAR (Clear); COLOR,URINE YELLOW (Yellow); GLUCOSE, URINE NEGATIVE (Neg); KETONES,URINE 40 mg/dl (Neg); LEUKOCYTE ESTERASE ,URINE NEGATIVE (Neg); NITRITES, URINE NEGATIVE (Neg); OCCULT BLOOD,URINE NEGATIVE (Neg); PROTEIN,URINE NEGATIVE (Neg); UROBILINOGEN,URINE 0.2 E.U/dL (0.2-1.0)
[2021-01-30 15:41] LABS: UA COLLECTION TYPE URINAL
[2021-01-30] MEDS: morphine 4 MG/ML inj SYRINge IV PRN ×2 (15:50→16:39)
[2021-01-30] MEDS ORDERED: proCHLORperazine 10 MG/2 ml inj IV ONE (16:50)
--- NOTE | 2021-01-30 16:50 | NUR ---
Discussed pt's active emesis w/ dolly Schafer; new order for compazine received. Primary RN Charlene informed.
[2021-01-30] MEDS ORDERED: haloperidol decanoate***LONG-ACTING*** 100mg/ml **IM only** inj. IM ONE (18:15)
[2021-01-30] MEDS ORDERED: haloperidol lactate 5mg/ml inj IM ONE (18:40)
--- NOTE | 2021-01-30 20:00 | NUR ---
Pt resting comfortably after morphine, compazine and zofran. Pt no longer vomiting; Haldol 2.5 mg held.
[2021-01-30] MEDS ORDERED: FAMO-128 PO (21:19)
[2021-01-30] MEDS ORDERED: ONDA4TAB6 PO (21:19)
[2021-01-30 22:34] VITALS: BP 155/78
== END 2021-01-30 23:28 | disposition home or self-care (01) ==
LOC: ER 11:47
DX: R10.13 Epigastric pain (principal); R11.2 Nausea with vomiting, unspecified; I25.10 Atherosclerotic heart disease of native coronary artery without angina pectoris; I50.9 Heart failure, unspecified; I11.0 Hypertensive heart disease with heart failure; E78.00 Pure hypercholesterolemia, unspecified; K21.9 Gastro-esophageal reflux disease without esophagitis; E11.9 Type 2 diabetes mellitus without complications; G89.29 Other chronic pain; Z98.61 Coronary angioplasty status; Z79.82 Long term (current) use of aspirin; Z79.4 Long term (current) use of insulin; Z79.899 Other long term (current) drug therapy; Z98.890 Other specified postprocedural states
CPT/HCPCS: 36415; 74177; 80053; 81003; 83690; 84484; 85025; 93005; 96361; 96374; 96375; 96376; 99285; J0780; J2270; J2405; J3490; J7030; Q9967

== ENCOUNTER 2022-01-21 17:04 | Inpatient (IN) | payer BC, OTHER ==
[~2022-01-21] VITALS: Ht 177.8 cm; Wt 81.8 kg
[~2022-01-21 17:04] MED LIST changes: +FAMO-128 PO; +ONDA4TAB6 PO; -POTA10TA36 PO; +POTA10TA37 PO
[2022-01-21 17:54] LABS: ALANINE AMINOTRANSFERASE 26 U/L (12-78); ALBUMIN 3.4 G/DL (3.4-5.0); ALBUMIN/GLOBULIN RATIO 1.2 (1.1-1.5); ALKALINE PHOSPHATASE 87 IU/L (46-116); ANION GAP 10 (8-16); ASPARTATE AMINO TRANSFERASE 29 U/L (10-37); BILIRUBIN,TOTAL 0.5 MG/DL (0.1-1.0); BLOOD UREA NITROGEN 25 MG/DL (7-18); BUN/CREATININE RATIO 24.8 (5.4-32.0); CALCIUM 8.2 MG/DL (8.5-10.1); CHLORIDE 103 MMOL/L (99-107); CREATININE 1.01 MG/DL (0.60-1.10); GLUCOSE 203 MG/DL (70-104); POTASSIUM 3.5 MMOL/L (3.5-5.1); SODIUM 134 MMOL/L (135-145); TOTAL PROTEIN 6.3 G/DL (6.4-8.2); eGFR 73 ML/MIN
[2022-01-21 17:55] LABS: EOSINOPHILS % (AUTO) 0.3 % (0-6); LYMPHOCYTES # (AUTO) 0.6 X10'3 (1.1-4.8); MONOCYTES # (AUTO) 0.7 X10'3 (0-0.9); MONOCYTES % (AUTO) 7.9 % (2-12)
[2022-01-21 17:57] LABS: BASOPHILS # (AUTO) 0.2 X10'3 (0-0.2); BASOPHILS % (AUTO) 2.2 % (0-1); LYMPHOCYTES % (AUTO) 7.4 % (21-51); MEAN CORPUSCULAR HEMOGLOBIN 16.1 PG (27.0-31.0); MEAN CORPUSCULAR HGB CONC 28.6 g/dL (33.0-36.5); MEAN CORPUSCULAR VOLUME 56.2 FL (78-98); MEAN PLATELET VOLUME 8.6 FL (7.4-10.4); NEUTROPHILS # (AUTO) 6.8 X10'3 (1.8-7.7); NEUTROPHILS % (AUTO) 82.2 % (42-75); PLATELET COUNT 250 X10'3 (140-440); RED BLOOD COUNT 3.37 X10'6 (4.70-6.10); RED CELL DISTRIBUTION WIDTH 20.8 % (11.5-14.5); WHITE BLOOD COUNT 8.3 X10'3 (4.5-11.0)
[2022-01-21 18:14] LABS: HEMOGLOBIN 5.4 g/dl (14.0-17.9)
--- NOTE | 2022-01-21 18:30 | NUR ---
assumed care of patient from RAMILA Espinoza+[id number].
[2022-01-21 19:16] LABS: APTT 27 SECONDS (22-32)
[2022-01-21 19:44] VITALS: BP 129/87
--- NOTE | 2022-01-21 19:50 | NUR ---
1934 bld transfusion initiated cosign/check by Shade Olivier consent on chart
[2022-01-21] MEDS ORDERED: iohexol 350MG/ML 100ml bottle IV ONE (19:54)
[2022-01-21 20:00] VITALS: BP 175/85
[2022-01-21] MEDS ORDERED: ondansetron/PF 4mg/2ml inj IV ONE (20:45)
[2022-01-21 20:55] VITALS: BP 164/80
--- NOTE | 2022-01-21 21:51 | NUR ---
patient resting in room, no c/o. awaiting dispo. PRBC infusing.
[2022-01-21 22:00] VITALS: BP 178/88
[2022-01-21 22:10] LABS: ACANTHOCYTES 2+; ANISOCYTOSIS 3+; BURR CELLS FEW; ELLIPTOCYTES FEW; MICROCYTOSIS 3+; PLATELET ESTIMATE NORMAL; POLYCHROMASIA FEW; TEAR DROP CELLS FEW
[2022-01-21 23:00] VITALS: BP 174/88
--- NOTE | 2022-01-21 23:00 | NUR ---
1 PRBC TRANSFUSED WITHOUT COMPLICATION.
[2022-01-21] MEDS ORDERED: ISOS30TA9 PO (23:09)
--- NOTE | 2022-01-21 23:15 | NUR ---
PATIENT RESTING IN ROOM, NO C/O. AWAITING ROOM AND ORDERS. UNABLE TO COMPLETE MED REC, PATIENT NOT GOOF HISTORIAN, GIVEN TO PHARMACY FOR INQUIRY.
[2022-01-21] MEDS ORDERED: potassium Cl 20 mEq SR tablet PO PRN (23:55)
[2022-01-21] MEDS ORDERED: magnesium 2GM in 50ml NS 50 ML IV PRN (23:55)
[2022-01-21] MEDS ORDERED: magnesium Cl slow-release 64mg tablet PO PRN (23:55)
[2022-01-21] MEDS ORDERED: mag hydrox/Alum hydrox/simeth 30ml oral suspension PO PRN (23:55)
[2022-01-21] MEDS ORDERED: acetaminophen 325mg tablet PO PRN (23:55)
[2022-01-21] MEDS ORDERED: nitroGLYCERIN 0.4mg SUBLingual tab SL PRN (23:55)
[2022-01-21] MEDS ORDERED: potassium CL 10mEq/100ml bag 100 ML IV PRN (23:55)
[2022-01-21] MEDS ORDERED: magnesium 4gm in 100ml NS 100 ML IV PRN (23:55)
[2022-01-21] MEDS ORDERED: ondansetron/PF 4mg/2ml inj IV PRN (23:55)
[2022-01-21] MEDS ORDERED: magnesium hydroxide 30ml (MOM) UD suspension PO PRN (23:55)
[2022-01-22] VITALS (10 sets, daily range): BP systolic 132–179; BP diastolic 60–82
[2022-01-22] MEDS ORDERED: insulin Lispro (HumaLOG) vial - multi-dose SQ SCH
[2022-01-22] MEDS ORDERED: dextrose 50%-water 50ml dispensing syringe IV PRN ×2
[2022-01-22] MEDS ORDERED: DEXTROSE 15 GM of carb/4 tabs (each vial/BOTTLE has 4 tablets) PO PRN ×2
[2022-01-22] MEDS ORDERED: MESSAGE TO PHARMACY PO ONE
[2022-01-22] MEDS ORDERED: glucagon, human recombinant 1mg kit SUBCUT PRN
[2022-01-22 00:10] LABS: MAGNESIUM 1.7 MG/DL (1.5-2.4)
[2022-01-22 00:26] LABS: % IRON SATURATION 6 % (11-46); IRON 20 UG/DL (53-167); TOTAL IRON BINDING CAPACITY 336 UG/DL (259-388)
[2022-01-22 00:26] LABS: HEMOGLOBIN A1C 6.6 % (4.5-6.2)
--- NOTE | 2022-01-22 01:31 | NUR ---
PATIENT ASLEEP IN ROOM, CHEST RISE AND FALL, AWAITING ROOM.
--- NOTE | 2022-01-22 06:05 | NUR ---
Patient in room PCU 3027. I have received report from Johana MCGRATH and had the opportunity to ask questions and assume patient care.
--- NOTE | 2022-01-22 06:19 | NUR ---
Patient in room PCU 3027. I have received report from RAMILA Vaughn and had the opportunity to ask questions and assume patient care.
[2022-01-22 06:38] LABS: BASOPHILS # (AUTO) 0.1 X10'3 (0-0.2); BASOPHILS % (AUTO) 1.7 % (0-1); EOSINOPHILS # (AUTO) 0.1 X10'3 (0-0.9); EOSINOPHILS % (AUTO) 1.6 % (0-6); HEMATOCRIT 23.5 % (42.0-52.0); HEMOGLOBIN 7.2 g/dl (14.0-17.9); LYMPHOCYTES # (AUTO) 0.9 X10'3 (1.1-4.8); LYMPHOCYTES % (AUTO) 9.7 % (21-51); MEAN CORPUSCULAR HEMOGLOBIN 19.1 PG (27.0-31.0); MEAN CORPUSCULAR HGB CONC 30.7 g/dL (33.0-36.5); MEAN CORPUSCULAR VOLUME 62.3 FL (78-98); MEAN PLATELET VOLUME 8.7 FL (7.4-10.4); MONOCYTES # (AUTO) 0.9 X10'3 (0-0.9); MONOCYTES % (AUTO) 10.1 % (2-12); NEUTROPHILS # (AUTO) 6.8 X10'3 (1.8-7.7); NEUTROPHILS % (AUTO) 76.9 % (42-75); PLATELET COUNT 196 X10'3 (140-440); RED BLOOD COUNT 3.78 X10'6 (4.70-6.10); RED CELL DISTRIBUTION WIDTH 30.3 % (11.5-14.5); WHITE BLOOD COUNT 8.8 X10'3 (4.5-11.0)
[2022-01-22 07:01] LABS: ALANINE AMINOTRANSFERASE 24 U/L (12-78); ALBUMIN/GLOBULIN RATIO 1.1 (1.1-1.5); ALKALINE PHOSPHATASE 81 IU/L (46-116); ANION GAP -2 (8-16); ASPARTATE AMINO TRANSFERASE 27 U/L (10-37); BLOOD UREA NITROGEN 17 MG/DL (7-18); CHLORIDE 103 MMOL/L (99-107); CREATININE 0.74 MG/DL (0.60-1.10); GLUCOSE 73 MG/DL (70-104); MAGNESIUM 1.7 MG/DL (1.5-2.4); POTASSIUM 3.2 MMOL/L (3.5-5.1); SODIUM 127 MMOL/L (135-145); TOTAL CARBON DIOXIDE 26.2 MMOL/L (24-32); TOTAL PROTEIN 5.7 G/DL (6.4-8.2); eGFR > 90 ML/MIN
[2022-01-22 07:35] LABS: ANISOCYTOSIS 3+; HYPOCHROMASIA 1+; MICROCYTOSIS 2+; PLATELET ESTIMATE NORMAL
[2022-01-22 07:36] LABS: ACANTHOCYTES 2+; ELLIPTOCYTES 1+; POLYCHROMASIA 1+; SCHISTOCYTES FEW
[2022-01-22] MEDS ORDERED: docusate sod 100mg capsule PO SCH (08:00)
[2022-01-22] MEDS: potassium Cl 20 mEq SR tablet PO PRN ×4 (08:16→23:45)
[2022-01-22] MEDS: K and/or MAG REPLACEMENT MC SCH ×2 (08:16→20:00)
[2022-01-22] MEDS: clopidogrel 75mg tablet PO SCH (08:16)
[2022-01-22 11:50] LABS: OCCULT BLOOD STOOL NEGATIVE (Neg)
--- NOTE | 2022-01-22 12:00 | NUR ---
Paged hospitalist: PAGER ID: [phone] MESSAGE: Room: 3027B: Samir: Pt's occult stool sample result is negative. RAMILA Saldana [id number]
[2022-01-22] MEDS: furosemide 40mg/4ml inj IV SCH ×2 (14:02→20:27)
[2022-01-22 14:06] LABS: % IRON SATURATION 5 % (11-46); IRON 14 UG/DL (53-167); TOTAL IRON BINDING CAPACITY 306 UG/DL (259-388)
--- NOTE | 2022-01-22 14:14 | NUR ---
Paged hospitalist: PAGER ID: [phone] MESSAGE: Room: 3027B: Samir: Pt's occult stool sample result is negative. RAMILA Saldana [id number]
[2022-01-22] MEDS ORDERED: morphine 2 MG/ML inj. syringe IV PRN (14:15)
[2022-01-22] MEDS: HYDROcodone/acetaminophen 5mg/325mg tablet PO PRN ×2 (15:00→23:56)
[2022-01-22 15:04] LABS: BASOPHILS # (AUTO) 0.1 X10'3 (0-0.2); EOSINOPHILS # (AUTO) 0.1 X10'3 (0-0.9); HEMOGLOBIN 7.3 g/dl (14.0-17.9); MEAN CORPUSCULAR VOLUME 62.2 FL (78-98); MONOCYTES # (AUTO) 0.8 X10'3 (0-0.9); NEUTROPHILS # (AUTO) 5.8 X10'3 (1.8-7.7)
[2022-01-22 15:06] LABS: BASOPHILS % (AUTO) 1.5 % (0-1); EOSINOPHILS % (AUTO) 1.7 % (0-6); LYMPHOCYTES # (AUTO) 0.7 X10'3 (1.1-4.8); LYMPHOCYTES % (AUTO) 8.8 % (21-51); MEAN CORPUSCULAR HEMOGLOBIN 18.8 PG (27.0-31.0); MEAN CORPUSCULAR HGB CONC 30.2 g/dL (33.0-36.5); MEAN PLATELET VOLUME 8.6 FL (7.4-10.4); MONOCYTES % (AUTO) 10.4 % (2-12); NEUTROPHILS % (AUTO) 77.6 % (42-75); PLATELET COUNT 193 X10'3 (140-440); RED BLOOD COUNT 3.87 X10'6 (4.70-6.10); RED CELL DISTRIBUTION WIDTH 30.7 % (11.5-14.5); WHITE BLOOD COUNT 7.5 X10'3 (4.5-11.0)
--- NOTE | 2022-01-22 17:16 | NUR ---
Paged hospitalist: PAGER ID: [phone] MESSAGE: Room: 3027B: Samir: Pt's occult stool sample result is negative. RAMILA Saldana [id number]
--- NOTE | 2022-01-22 18:00 | NUR ---
[place] documentation: I have reviewed and agree with all interventions, assessments performed and documented by Shana Matthews RN.
--- NOTE | 2022-01-22 18:15 | NUR ---
Assumed pt. report from Shana MCGRATH. questions and concerns addressed. Addendum: 01/22/22 at 1858 by Ayana Martinez RN Amended: Links added.
--- NOTE | 2022-01-22 18:21 | NUR ---
Problems reprioritized. Patient report given, questions answered & plan of care reviewed with Ayana MCGRATH.
--- NOTE | 2022-01-22 18:25 | NUR ---
Problems reprioritized. Patient report given, questions answered & plan of care reviewed with RAMILA Piña.
[2022-01-22] MEDS ORDERED: insulin glargine (Lantus) pen - multi-dose SQ SCH (21:00)
[2022-01-22] MEDS ORDERED: atorvastatin 20mg tablet PO SCH ×2 (21:00)
[2022-01-22] MEDS ORDERED: ISOS60TA71 PO (21:06)
[2022-01-22] MEDS ORDERED: METO-384 PO (21:06)
[2022-01-22] MEDS ORDERED: LISI20TA28 PO (21:06)
[2022-01-22] MEDS ORDERED: POTA-82 PO (21:06)
[2022-01-22] MEDS ORDERED: METF-438 PO (21:06)
[2022-01-22] MEDS ORDERED: AMLO5TAB PO (21:06)
[2022-01-23] MEDS ORDERED: LORazepam 2 mg/ml vial IV ONE (01:45)
--- NOTE | 2022-01-23 01:45 | NUR ---
Pt. with c/o muscle cramps to left thigh; notified Dr. Jules- received orders for Ativan 1 mg IVp once. Orders implemented. Addendum: 01/23/22 at 0155 by Ayana Martinez RN Amended: Links added.
[2022-01-23 02:00] VITALS: BP 163/78
[2022-01-23] MEDS: potassium Cl 20 mEq SR tablet PO PRN ×2 (04:29→08:41)
[2022-01-23 06:00] VITALS: BP 143/54
--- NOTE | 2022-01-23 06:15 | NUR ---
Problems reprioritized. Patient report given, questions answered & plan of care reviewed with Quiana MCGRATH. Addendum: 01/23/22 at 0643 by Ayana Martinez RN Amended: Links added.
[2022-01-23 07:08] LABS: BASOPHILS # (AUTO) 0.1 X10'3 (0-0.2); BASOPHILS % (AUTO) 1.3 % (0-1); EOSINOPHILS # (AUTO) 0.3 X10'3 (0-0.9); EOSINOPHILS % (AUTO) 4.1 % (0-6); HEMATOCRIT 25.4 % (42.0-52.0); HEMOGLOBIN 7.8 g/dl (14.0-17.9); LYMPHOCYTES # (AUTO) 0.8 X10'3 (1.1-4.8); LYMPHOCYTES % (AUTO) 10.5 % (21-51); MEAN CORPUSCULAR HEMOGLOBIN 18.9 PG (27.0-31.0); MEAN CORPUSCULAR HGB CONC 30.5 g/dL (33.0-36.5); MEAN PLATELET VOLUME 9.2 FL (7.4-10.4); MONOCYTES % (AUTO) 13.7 % (2-12); NEUTROPHILS # (AUTO) 5.3 X10'3 (1.8-7.7); NEUTROPHILS % (AUTO) 70.4 % (42-75); PLATELET COUNT 209 X10'3 (140-440); RED CELL DISTRIBUTION WIDTH 30.6 % (11.5-14.5); WHITE BLOOD COUNT 7.5 X10'3 (4.5-11.0)
[2022-01-23] MEDS: K and/or MAG REPLACEMENT MC SCH (08:00)
[2022-01-23 08:26] LABS: ANISOCYTOSIS 3+; BURR CELLS FEW; ELLIPTOCYTES 1+; HYPOCHROMASIA 1+; MICROCYTOSIS 2+; PLATELET ESTIMATE NORMAL; POLYCHROMASIA 1+; TEAR DROP CELLS 2+
[2022-01-23 08:27] LABS: ACANTHOCYTES 1+; SCHISTOCYTES FEW
[2022-01-23] MEDS: clopidogrel 75mg tablet PO SCH (08:41)
[2022-01-23] MEDS: furosemide 40mg/4ml inj IV SCH (08:41)
[2022-01-23 09:23] LABS: ALANINE AMINOTRANSFERASE 32 U/L (12-78); ALBUMIN 3.1 G/DL (3.4-5.0); ALKALINE PHOSPHATASE 94 IU/L (46-116); ANION GAP 8 (8-16); ASPARTATE AMINO TRANSFERASE 31 U/L (10-37); BILIRUBIN,TOTAL 0.9 MG/DL (0.1-1.0); BLOOD UREA NITROGEN 14 MG/DL (7-18); BUN/CREATININE RATIO 16.7 (5.4-32.0); CALCIUM 8.1 MG/DL (8.5-10.1); CHLORIDE 101 MMOL/L (99-107); CREATININE 0.84 MG/DL (0.60-1.10); GLUCOSE 164 MG/DL (70-104); MAGNESIUM 1.7 MG/DL (1.5-2.4); POTASSIUM 3.8 MMOL/L (3.5-5.1); SODIUM 139 MMOL/L (135-145); TOTAL CARBON DIOXIDE 30.3 MMOL/L (24-32); TOTAL PROTEIN 6.1 G/DL (6.4-8.2); eGFR 90 ML/MIN
[2022-01-23 11:00] VITALS: BP 166/83
[2022-01-23] MEDS ORDERED: FURO20TA4 PO (11:00)
[2022-01-23] MEDS ORDERED: ATOR20TA66 PO (11:00)
[2022-01-23] MEDS ORDERED: POTA10TA37 PO (11:00)
--- NOTE | 2022-01-23 15:27 | NUR ---
home instructions was given and explained to pt priot to discharge. stable for discharge as per MD. PIV dicontinued with cannula tip complete and intact.
== END 2022-01-23 15:00 | disposition home or self-care (01) | DRG 811 ==
LOC: ER 17:04 → ED HOLD 23:55 → PCU 3S 01-22 01:55
PROVIDERS: ADMIT Internal Medicine; ATTEND Internal Medicine
PROC: 30233N1 Transfusion of Nonautologous Red Blood Cells into Peripheral Vein, Percutaneous Approach (ICD-10-PCS; principal; 2022-01-21)
PROC: B4201ZZ Computerized Tomography (CT Scan) of Abdominal Aorta using Low Osmolar Contrast (ICD-10-PCS; 2022-01-21)
PROC: B4241ZZ Computerized Tomography (CT Scan) of Superior Mesenteric Artery using Low Osmolar Contrast (ICD-10-PCS; 2022-01-21)
PROC: B42H1ZZ Computerized Tomography (CT Scan) of Bilateral Lower Extremity Arteries using Low Osmolar Contrast (ICD-10-PCS; 2022-01-21)
PROC: B4211ZZ Computerized Tomography (CT Scan) of Celiac Artery using Low Osmolar Contrast (ICD-10-PCS; 2022-01-21)
DX: D50.9 Iron deficiency anemia, unspecified (principal); I50.23 Acute on chronic systolic (congestive) heart failure; E87.1 Hypo-osmolality and hyponatremia; I11.0 Hypertensive heart disease with heart failure; E11.9 Type 2 diabetes mellitus without complications; G89.29 Other chronic pain; K21.9 Gastro-esophageal reflux disease without esophagitis; Z60.2 Problems related to living alone; M54.9 Dorsalgia, unspecified; E78.00 Pure hypercholesterolemia, unspecified; I25.119 Atherosclerotic heart disease of native coronary artery with unspecified angina pectoris; Z79.02 Long term (current) use of antithrombotics/antiplatelets; Z87.828 Personal history of other (healed) physical injury and trauma; Z95.1 Presence of aortocoronary bypass graft; Z98.61 Coronary angioplasty status; Z79.899 Other long term (current) drug therapy; Z79.4 Long term (current) use of insulin
CPT/HCPCS: 36415; 36430; 71045; 74174; 80053; 82272; 82948; 83036; 83540; 83550; 83735; 83880; 84132; 84145; 85008; 85025; 85610; 85730; 86885; 86900; 86901; 86920; 87081; 93005; 93306; 96374; 97116; 97161; 97530; 99291; G0378; J1815; J1940; J2060; J2405; P9016; Q9967

== ENCOUNTER 2024-12-07 16:43 | Inpatient (IN) | payer MEDICARE, OTHER ==
[~2024-12-07] VITALS: Ht 177.8 cm; Wt 86.4 kg
[~2024-12-07 16:43] MED LIST changes: +AMLO5TAB16 PO; -ASPI-920 PO; +ATOR40TA71 PO; -ATOR80TA PO; +CYAN500T71 PO; +DOCU100C40 PO; -FAMO-128 PO; -FEXO180T94 PO; +INSU100C4 SQ; +ISOS60TA71 PO; +LISI40TA13 PO; +MELA5CAP PO; +METF-438 PO; +METO-411 PO; -METO-539 PO; -NOVLG SQ; -ONDA4TAB6 PO; +POTA-207 PO; -POTA10TA37 PO; +SAW450CA7 PO
[2024-12-07 18:19] LABS: BASOPHILS # (AUTO) 0.1 X10'3 (0-0.2); BASOPHILS % (AUTO) 0.6 % (0-1); EOSINOPHILS % (AUTO) 0.1 % (0-6); HEMATOCRIT 44.3 % (42.0-52.0); HEMOGLOBIN 14.8 g/dl (14.0-17.9); LYMPHOCYTES # (AUTO) 0.6 X10'3 (1.1-4.8); LYMPHOCYTES % (AUTO) 6.4 % (21-51); MEAN CORPUSCULAR HEMOGLOBIN 28.8 PG (27.0-31.0); MEAN CORPUSCULAR HGB CONC 33.3 g/dL (33.0-36.5); MEAN CORPUSCULAR VOLUME 86.5 FL (78-98); MEAN PLATELET VOLUME 7.6 FL (7.4-10.4); MONOCYTES # (AUTO) 0.6 X10'3 (0-0.9); MONOCYTES % (AUTO) 6.4 % (2-12); NEUTROPHILS # (AUTO) 7.8 X10'3 (1.8-7.7); NEUTROPHILS % (AUTO) 86.5 % (42-75); PLATELET COUNT 347 X10'3 (140-440); RED BLOOD COUNT 5.12 X10'6 (4.70-6.10)
[2024-12-07 18:35] LABS: ALANINE AMINOTRANSFERASE 28 U/L (12-78); ALBUMIN 4.2 G/DL (3.4-5.0); ALBUMIN/GLOBULIN RATIO 1.1 (1.1-1.5); ALKALINE PHOSPHATASE 109 IU/L (46-116); ANION GAP 9 (8-16); ASPARTATE AMINO TRANSFERASE 16 U/L (10-37); BILIRUBIN,TOTAL 0.8 MG/DL (0.1-1.0); BLOOD UREA NITROGEN 23 MG/DL (7-18); BUN/CREATININE RATIO 29.9 (10.0-20.0); CALCIUM 9.8 MG/DL (8.5-10.1); CHLORIDE 101 MMOL/L (99-107); CREATININE 0.77 MG/DL (0.60-1.10); GLUCOSE 163 MG/DL (70-104); LIPASE 15 U/L (16-77); POTASSIUM 3.7 MMOL/L (3.5-5.1); SODIUM 138 MMOL/L (135-145); TOTAL CARBON DIOXIDE 28.1 MMOL/L (24-32); eCRCL 86 ML/MIN; eGFR > 90 ML/MIN
[2024-12-07] MEDS: metoclopramide 5 mg/ml inj IV ONE (18:37)
[2024-12-07] MEDS: normal saline 1000ml 1,000 ML IV ONE (18:37)
[2024-12-07] MEDS: pantoprazole 40 MG vial IV ONE (18:37)
[2024-12-07] MEDS: morphine 4 MG/ML inj SYRINge IV ONE ×2 (18:38→22:06)
[2024-12-07 19:34] LABS: MAGNESIUM 1.7 MG/DL (1.5-2.4); PRO BRAIN NATRIURETIC PEPTIDE 416 PG/ML (0-450)
[2024-12-07] MEDS: ondansetron/PF 4mg/2ml inj IV ONE ×2 (22:06→22:54)
[2024-12-07] MEDS: PERFLUTREN PROTEIN-A MICROSPHR (Optison) 0.22 MG/ML 3ML VIAL IV ONE (22:50)
[2024-12-07] MEDS ORDERED: magnesium sulf-water 4G/100mL 100 ML IV PRN (22:50)
[2024-12-07] MEDS ORDERED: acetaminophen 325mg tablet PO PRN (22:50)
[2024-12-07] MEDS ORDERED: mag hydrox/Alum hydrox/simeth 30ml oral suspension PO PRN (22:50)
[2024-12-07] MEDS ORDERED: magnesium Cl slow-release 64mg tablet PO PRN (22:50)
[2024-12-07] MEDS ORDERED: potassium Cl 20 mEq SR tablet PO PRN ×2 (22:50)
[2024-12-07] MEDS ORDERED: magnesium sulf-water 2g/50mL 50 ML IV PRN (22:50)
[2024-12-07] MEDS ORDERED: potassium Cl 40MEQ/1/2NS 520ml 520 ML IV PRN (22:50)
[2024-12-07] MEDS ORDERED: magnesium hydroxide 30ml (MOM) UD suspension PO PRN (22:50)
[2024-12-07] MEDS: ondansetron inj. 24 MG in normal saline 250ml IV soln 228 ML IV SCH (23:53)
[2024-12-07] MEDS: pantoprazole 40MG/NS 100ML BAG 100 ML IV SCH (23:53)
[2024-12-08 00:06] LABS: BILIRUBIN,URINE NEGATIVE (Neg); CLARITY,URINE CLEAR (Clear); COLOR,URINE YELLOW (Yellow); GLUCOSE, URINE NEGATIVE (Neg); KETONES,URINE >=80 mg/dl (Neg); LEUKOCYTE ESTERASE ,URINE NEGATIVE (Neg); NITRITES, URINE NEGATIVE (Neg); OCCULT BLOOD,URINE TRACE-INTACT (Neg); PH,URINE 7.5 (4.8-8.0); PROTEIN,URINE 100 mg/dl (Neg); UROBILINOGEN,URINE 0.2 E.U/dL (0.2-1.0)
[2024-12-08] MEDS ORDERED: dextrose 50%-water 50ml dispensing syringe IV PRN ×2 (00:10)
[2024-12-08] MEDS ORDERED: DEXTROSE 15 GM of carb/4 tabs (each vial/BOTTLE has 4 tablets) PO PRN ×2 (00:10)
[2024-12-08] MEDS ORDERED: glucagon, human recombinant 1mg kit SUBCUT PRN (00:10)
[2024-12-08 00:14] LABS: UA COLLECTION TYPE VOIDED
[2024-12-08 00:16] LABS: BACTERIA,URINE NONE SEEN /HPF (Neg); RBC,URINE 0-2 /HPF (0-2); SQUAMOUS EPITHELIAL CELL,UR NONE SEEN /LPF (FEW); WBC,URINE NONE SEEN /HPF (0-4)
[2024-12-08] MEDS: heparin, porcine 5000 units/ml vial SQ SCH (01:25)
[2024-12-08 01:46] LABS: BASOPHILS % (AUTO) 0.2 % (0-1); EOSINOPHILS % (AUTO) 0 % (0-6); HEMATOCRIT 39.6 % (42.0-52.0); HEMOGLOBIN 13.1 g/dl (14.0-17.9); LYMPHOCYTES # (AUTO) 0.5 X10'3 (1.1-4.8); LYMPHOCYTES % (AUTO) 6.5 % (21-51); MEAN CORPUSCULAR HEMOGLOBIN 28.8 PG (27.0-31.0); MEAN CORPUSCULAR HGB CONC 33.2 g/dL (33.0-36.5); MEAN CORPUSCULAR VOLUME 86.9 FL (78-98); MEAN PLATELET VOLUME 7.4 FL (7.4-10.4); MONOCYTES # (AUTO) 0.5 X10'3 (0-0.9); MONOCYTES % (AUTO) 5.5 % (2-12); NEUTROPHILS # (AUTO) 7.2 X10'3 (1.8-7.7); NEUTROPHILS % (AUTO) 87.8 % (42-75); PLATELET COUNT 291 X10'3 (140-440); RED BLOOD COUNT 4.56 X10'6 (4.70-6.10); RED CELL DISTRIBUTION WIDTH 13.9 % (11.5-14.5); WHITE BLOOD COUNT 8.2 X10'3 (4.5-11.0)
[2024-12-08 02:12] LABS: ALANINE AMINOTRANSFERASE 26 U/L (12-78); ALBUMIN 3.4 G/DL (3.4-5.0); ALBUMIN/GLOBULIN RATIO 1.1 (1.1-1.5); ALKALINE PHOSPHATASE 87 IU/L (46-116); ANION GAP 8 (8-16); ASPARTATE AMINO TRANSFERASE 10 U/L (10-37); BILIRUBIN,TOTAL 0.6 MG/DL (0.1-1.0); BLOOD UREA NITROGEN 23 MG/DL (7-18); BUN/CREATININE RATIO 39.7 (10.0-20.0); CALCIUM 8.4 MG/DL (8.5-10.1); CHLORIDE 105 MMOL/L (99-107); CREATININE 0.58 MG/DL (0.60-1.10); GLUCOSE 183 MG/DL (70-104); MAGNESIUM 1.8 MG/DL (1.5-2.4); POTASSIUM 3.7 MMOL/L (3.5-5.1); SODIUM 140 MMOL/L (135-145); TOTAL CARBON DIOXIDE 27.2 MMOL/L (24-32); TOTAL PROTEIN 6.5 G/DL (6.4-8.2); eCRCL 114 ML/MIN; eGFR > 90 ML/MIN
[2024-12-08 02:17] LABS: HEMOGLOBIN A1C 6.2 % (4.5-6.2)
[2024-12-08] MEDS: proCHLORperazine 10 MG/2 ml inj IV ONE (03:30)
[2024-12-08] MEDS: LORazepam 0.5 MG tablet PO PRN (07:02)
[2024-12-08] MEDS: docusate sod 100mg capsule PO SCH (08:00)
[2024-12-08] MEDS: INSULIN LISPRO 100 UNIT/ML INSULN.PEN MULTI-DOSE SQ SCH (08:07)
[2024-12-08] MEDS: amLODIPine 5mg tablet PO ONE ×2 (08:53→09:33)
[2024-12-08] MEDS: metoprolol succinate 25mg (24-HOUR) SR. Tablet PO SCH (08:53)
[2024-12-08] MEDS: isosorbide mononitrate 30mg tab.SR.24H PO SCH (08:53)
[2024-12-08] MEDS: lisinopril 20mg tablet PO SCH (08:54)
[2024-12-08] MEDS: furosemide 20MG tablet PO SCH (08:54)
[2024-12-08] MEDS: amLODIPine 5mg tablet PO SCH (08:54)
[2024-12-08] MEDS: hydrALAZINE 20mg/ml inj. IV ONE (09:32)
[2024-12-08] MEDS: K and/or MAG REPLACEMENT MC SCH (09:35)
[2024-12-08 10:25] LABS: URINE AMPHETAMINE SCREEN NEGATIVE (Neg); URINE BARBITUATE SCREEN NEGATIVE (Neg); URINE BENZODIAZEPINES SCREEN NEGATIVE (Neg); URINE CANNABINOID SCREEN POSITIVE (Neg); URINE COCAINE SCREEN NEGATIVE (Neg); URINE METHADONE SCREEN NEGATIVE (Neg); URINE OPIATE SCREEN POSITIVE (Neg); URINE PHENCYCLIDINE SCREEN NEGATIVE (Neg)
[2024-12-08] MEDS ORDERED: metoclopramide 5 mg/ml inj IV PRN (10:50)
[2024-12-08] MEDS ORDERED: ondansetron/PF 4mg/2ml inj IV PRN (10:50)
[2024-12-08] MEDS: cyanocobalamin 500mcg tablet PO SCH (11:17)
[2024-12-08] MEDS: morphine 2 MG/ML inj. syringe IV PRN (14:31)
[2024-12-08] MEDS: hydrALAZINE 20mg/ml inj. IV PRN (18:27)
[2024-12-08 20:00] VITALS: RESP 17; O2SAT 100
[2024-12-08 20:06] VITALS: BP 178/77; PULSE 76; RESP 17; TEMP 97.5; O2SAT 100
[2024-12-08 20:07] VITALS: BP 163/69; PULSE 72; TEMP 98; O2SAT 96
[2024-12-08] MEDS: insulin glargine (Lantus) pen - multi-dose SQ SCH (20:45)
[2024-12-08] MEDS ORDERED: insulin glargine (Lantus) pen - multi-dose SQ SCH (21:00)
[2024-12-08] MEDS: atorvastatin 20mg tablet PO SCH (22:30)
[2024-12-08] MEDS: Melatonin 3mg tablet PO SCH (22:30)
[2024-12-08] MEDS: LORazepam 2 mg/ml vial IV ONE (23:06)
[2024-12-08] MEDS: HYDROcodone/acetaminophen 5mg/325mg tablet PO PRN (23:14)
[2024-12-08 23:15] VITALS: BP 169/71; PULSE 75; RESP 20; TEMP 98.3; O2SAT 96
[2024-12-09] VITALS (17 sets, daily range): BP systolic 115–182; BP diastolic 42–81; PULSE 54–77; RESP 12–25; TEMP 97.6–98.4; O2SAT 95–99
[2024-12-09] MEDS: ondansetron/PF 4mg/2ml inj IV PRN (01:45)
[2024-12-09 06:56] LABS: ALANINE AMINOTRANSFERASE 22 U/L (12-78); ALBUMIN 3.5 G/DL (3.4-5.0); ALBUMIN/GLOBULIN RATIO 1.1 (1.1-1.5); ALKALINE PHOSPHATASE 87 IU/L (46-116); ANION GAP 5 (8-16); ASPARTATE AMINO TRANSFERASE 17 U/L (10-37); BILIRUBIN,TOTAL 0.6 MG/DL (0.1-1.0); BLOOD UREA NITROGEN 14 MG/DL (7-18); BUN/CREATININE RATIO 20.9 (10.0-20.0); CALCIUM 8.3 MG/DL (8.5-10.1); CHLORIDE 106 MMOL/L (99-107); CREATININE 0.67 MG/DL (0.60-1.10); GLUCOSE 136 MG/DL (70-104); POTASSIUM 3.5 MMOL/L (3.5-5.1); SODIUM 139 MMOL/L (135-145); TOTAL PROTEIN 6.8 G/DL (6.4-8.2); eCRCL 98 ML/MIN; eGFR > 90 ML/MIN
[2024-12-09 07:01] LABS: BASOPHILS % (AUTO) 0.3 % (0-1); EOSINOPHILS # (AUTO) 0.1 X10'3 (0-0.9); EOSINOPHILS % (AUTO) 0.8 % (0-6); HEMATOCRIT 40.8 % (42.0-52.0); HEMOGLOBIN 13.7 g/dl (14.0-17.9); LYMPHOCYTES # (AUTO) 1.1 X10'3 (1.1-4.8); LYMPHOCYTES % (AUTO) 13.3 % (21-51); MEAN CORPUSCULAR HEMOGLOBIN 29.1 PG (27.0-31.0); MEAN CORPUSCULAR HGB CONC 33.5 g/dL (33.0-36.5); MEAN CORPUSCULAR VOLUME 86.8 FL (78-98); MEAN PLATELET VOLUME 7.4 FL (7.4-10.4); MONOCYTES # (AUTO) 0.9 X10'3 (0-0.9); MONOCYTES % (AUTO) 10.6 % (2-12); NEUTROPHILS # (AUTO) 6.2 X10'3 (1.8-7.7); PLATELET COUNT 296 X10'3 (140-440); RED CELL DISTRIBUTION WIDTH 13.8 % (11.5-14.5); WHITE BLOOD COUNT 8.3 X10'3 (4.5-11.0)
[2024-12-09] MEDS: amLODIPine 5mg tablet PO SCH (07:27)
[2024-12-09] MEDS ORDERED: hydrALAZINE 20mg/ml inj. IV PRN (07:45)
[2024-12-09] MEDS: hydrALAZINE 20mg/ml inj. IV PRN (08:56)
[2024-12-09] MEDS ORDERED: propofol inj 20 ML IV ONE (11:58)
[2024-12-09] MEDS ORDERED: LIDOcaine 1%/PF 5ML 10 MG/ML VIAL ONE (12:08)
[2024-12-09] MEDS: pneumococcal 23-VAL P-sac vacc 25 mcg/0.5ml vial IMVAC ONE (13:23)
[2024-12-09] MEDS: FLU VACC TS2024-25(6MOS UP)/PF 45 MCG/0.5 ML SYRINGE IMVAC ONE (13:24)
[2024-12-09] MEDS ORDERED: LANTUS SQ ×2 (13:48→17:28)
[2024-12-09] MEDS ORDERED: PANT40TA54 PO (13:48)
[2024-12-09] MEDS ORDERED: NOR5T PO (13:48)
[2024-12-09] MEDS ORDERED: hyDRALAzine tablet PO (13:51)
[2024-12-09] MEDS ORDERED: hyDRALAzine 10mg tablet PO SCH (16:00)
[2024-12-09] MEDS ORDERED: hydrALAZINE 20mg/ml inj. IV ONE (16:50)
[2024-12-09] MEDS: hydrALAZINE 20mg/ml inj. IV ONE (17:01)
== END 2024-12-09 18:00 | disposition home or self-care (01) | DRG 378 ==
LOC: ER 16:44 → EEVIPCON 22:08 → ED HOLD 22:08 → EDBEDREQ 12-08 15:55 → PCU 3S 12-08 16:20
PROVIDERS: ADMIT Internal Medicine; ATTEND Nurse Practitioner Family
PROC: 0DB78ZX Excision of Stomach, Pylorus, Via Natural or Artificial Opening Endoscopic, Diagnostic (ICD-10-PCS; principal; 2024-12-09 11:54)
DX: K29.01 Acute gastritis with bleeding (principal); I16.1 Hypertensive emergency; E11.9 Type 2 diabetes mellitus without complications; I11.0 Hypertensive heart disease with heart failure; I50.9 Heart failure, unspecified; N40.0 Benign prostatic hyperplasia without lower urinary tract symptoms; K21.00 Gastro-esophageal reflux disease with esophagitis, without bleeding; G89.29 Other chronic pain; E78.00 Pure hypercholesterolemia, unspecified; I25.10 Atherosclerotic heart disease of native coronary artery without angina pectoris; Z79.4 Long term (current) use of insulin; Z95.1 Presence of aortocoronary bypass graft; Z79.84 Long term (current) use of oral hypoglycemic drugs
CPT/HCPCS: 36415; 43239; 71045; 74176; 76700; 80053; 80305; 81001; 81003; 82948; 83036; 83605; 83690; 83735; 83880; 84484; 85025; 87040; 87081; 90732; 93005; 93306; 97161; 97530; 99285; A4620; G0378; J0360; J0780; J1644; J1815; J2060; J2270; J2405; J2470; J2704; J2765; J3490; J7030; J7050